=== PATIENT | male | born 1930 | race Caucasian/White ===

== ENCOUNTER 2018-07-27 10:28 | Inpatient (IN) | payer MEDICARE, BC ==
[~2018-07-27] VITALS: Ht 175.3 cm; Wt 72.6 kg
--- NOTE | 2018-07-27 10:35 | NUR ---
BIB [facility]. PATIENT IS AWAKE AND ALERT. PLACE ON A MONITOR. BP WNL. 12 LEAD EKG IN PROCESS. SON IN LAW AT BEDSIDE.
[2018-07-27] MEDS ORDERED: CEFTRIAXONE 1 G in IV DEXTROSE 5% 50 ML IV ONE (10:45)
[2018-07-27] MEDS ORDERED: GENTAMICIN SULFATE INJ 80 MG in IV DEXTROSE 5% 100 ML IV ONE (10:45)
[2018-07-27] MEDS ORDERED: IV NORMAL SALINE 1000 ML BAG IV ONE (10:45)
[2018-07-27] MEDS ORDERED: VANCOMYCIN IV 1,000 MG in IV DEXTROSE 5% 250 ML IV ONE (10:45)
[2018-07-27] MEDS ORDERED: DEXAMETHASONE SOD PHOSPHATE 4 MG INJ IV ONE (10:45)
[2018-07-27] MEDS ORDERED: METRONIDAZOLE 500 MG/NS 100ML 100 ML IV ONE ×2 (10:45→11:11)
--- NOTE | 2018-07-27 11:02 | NUR ---
O2 [address] ESQUEDA. HOB ELEVATED. 2 IV'S ARE IN PLACED.
[2018-07-27 11:11] LABS: ABG BASE EXCESS -5.8 mmol/L; ABG PCO2 23.5 mmHg (35.0-45.0); ABG PO2 59.4 mmHg (75.0-100.0); ABG SITE RIGHT RADIAL; VENT MODE room air
[2018-07-27] MEDS ORDERED: DEXAMETHASONE SOD PHOSPHATE 10 MG INJ ONE (11:11)
[2018-07-27] MEDS ORDERED: GENTAMICIN SULFATE 80 MG/2 ML VIAL ONE (11:11)
[2018-07-27 11:16] LABS: CARBON DIOXIDE 20 mmol/L (21-32); CHLORIDE 100 mmol/L (98-107); CREATININE 2.2 mg/dL (0.6-1.3); GLUCOSE 148 mg/dL (74-106); POTASSIUM 3.5 mmol/L (3.5-5.1); UREA NITROGEN, BLOOD 38 mg/dL (7-18)
[2018-07-27 11:18] LABS: BASOPHILS % (AUTO) 0.1 % (0.0-2.0); HEMATOCRIT 32.7 % (36.7-47.1); HEMOGLOBIN 11.3 g/dL (12.5-16.3); LYMPHOCYTES # (AUTO) 0.2 K/uL (20.0-40.0); MEAN CORPUSCULAR HEMOGLOBIN 32.1 uug (23.8-33.4); MEAN CORPUSCULAR HGB CONC 35 g/dL (32.5-36.3); MEAN CORPUSCULAR VOLUME 92.6 fL (73.0-96.2); MONOCYTES # (AUTO) 0.1 K/uL (2.0-10.0); MONOCYTES % (AUTO) 0.8 % (0.0-11.0); NEUTROPHILS # (AUTO) 17.3 K/uL (1.8-8.9); NEUTROPHILS % (AUTO) 98.1 % (38.5-71.5); PLATELET COUNT (AUTO) 122 K/uL (152-348); RED BLOOD CELL COUNT(AUTO) 3.53 MIL/uL (4.06-5.63); WHITE BLOOD COUNT (AUTO) 17.7 K/uL (3.6-10.2)
[2018-07-27 11:29] LABS: ALANINE AMINOTRANSFERASE 25 U/L (16-63); ALKALINE PHOSPHATASE 233 U/L (50-136); ASPARTATE AMINOTRANSFERASE 49 U/L (15-37); BILIRUBIN,DIRECT 0.4 mg/dL (0.0-0.2); BILIRUBIN,TOTAL 0.8 mg/dL (0.2-1.0); TOTAL PROTEIN, SERUM 6.7 g/dL (6.4-8.2)
--- NOTE | 2018-07-27 11:38 | NUR ---
CALLED [facility] FOR PANEL CALL - AWAITING CALLBACK. ATTEMPT 1.
[2018-07-27] MEDS ORDERED: CEFTRIAXONE 1 G VIAL ONE (11:40)
--- NOTE | 2018-07-27 11:48 | NUR ---
COBY REYNOSO NP, IN UNIT SPEAKING W/ ER MD RE PT'S ADMISSION.
--- NOTE | 2018-07-27 12:26 | NUR ---
FIRST LITER OF IV NS GIVEN. SECOND LITER HUNG. UNABLE TO ADMINSITER VANCO IN ER BECAUSE PATIENT IS BEING ADMITTED TO SECOND FLOOR. DR ESQUEDA AND EMILIANO RN AWARE. REPORT GIVEN TO EMILIANO MENCHACA, TELE NURSE. FAMILY AND PATIENT AWARE OF PENDING ADMISSION.
--- NOTE | 2018-07-27 12:45 | NUR ---
PATIENT HAS A COLOSTOMY BAG THAT NEEDS TO BE CHANGED. I ATTEMPTED TO OBTAIN A BAG AND WAFER WAS UNABLE TO BEFORE ADMISSION TO [facility]. EMILIANO MENCHACA FROM [facility] FLOOR STATED HE WILL CHANGE IT SOON HE CAN WHEN PATIENT ARRIVES TO HIS UNIT.
[2018-07-27 13:12] VITALS: BP 110/63
[2018-07-27] MEDS ORDERED: ASPIRIN 325 MG TABLET PO ONE (13:30)
[2018-07-27] MEDS ORDERED: IPRATROPIUM BROMIDE 0.5 MG/2.5 ML NEBU NEB PRN (13:30)
[2018-07-27] MEDS ORDERED: ALBUTEROL SULFATE 2.5 MG/ 0.5 ML NEBU NEB PRN (13:30)
[2018-07-27] MEDS ORDERED: ACETAMINOPHEN 325 MG TABLET PO PRN (13:45)
[2018-07-27] MEDS ORDERED: TEMAZEPAM 15 MG CAPSULE PO PRN (13:45)
[2018-07-27] MEDS ORDERED: NITROGLYCERIN 0.4 MG/TAB BOTTLE SL PRN (13:45)
[2018-07-27] MEDS ORDERED: HYDROCODONE/APAP 5-325MG TABLET PO PRN (13:45)
[2018-07-27] MEDS ORDERED: ONDANSETRON 4 MG/2 ML VIAL IV PRN (13:45)
[2018-07-27] MEDS ORDERED: MORPHINE SULFATE 2 MG/1 ML DISP.SYRIN IV PRN (13:45)
[2018-07-27] MEDS ORDERED: Z GUARD REMEDY PASTE 57 GM TUBE TOP PRN (13:45)
[2018-07-27] MEDS ORDERED: MAGNESIUM HYDROXIDE 30 ML LIQUID UDC PO PRN (13:45)
--- NOTE | 2018-07-27 13:56 | NUR ---
CLINICAL PHARMACY NOTE:VANCOMYCIN Request for vancomycin dosing on 87 y/o male 6' 160lbs for sepsis Temp 98.0 BUN 35 Scr 2.2 WC 17.7 also on Flagyl and Rocephin Due to decrease renal function will dose by levels. Give vancomycin 1gm ivpb today. Random vancomycin level ordered for tomorrow. Will continue to monitor
[2018-07-27] MEDS ORDERED: MORPHINE SULFATE 4 MG/1 ML DISP.SYRIN IV PRN (14:00)
[2018-07-27] MEDS ORDERED: VANCOMYCIN IV 1 G in PREMIXED 0 EACH IV ONE (15:00)
[2018-07-27 16:19] VITALS: BP 100/61
[2018-07-27] MEDS ORDERED: OSELTAMIVIR PHOSPHATE 75 MG CAPSULE PO SCH (17:00)
[2018-07-27] MEDS ORDERED: AZITHROMYCIN IV 500 MG in IV DEXTROSE 5% 250 ML IV SCH (18:00)
[2018-07-27] MEDS: VANCOMYCIN FOR PO/GT/NG USE PO SCH ×2 (18:34→23:45)
--- NOTE | 2018-07-27 18:59 | NUR ---
Admission note: 1300 admitted a 87 years old male from ER. Pt. brought in by staff appraiser with . Pt. in telemetry for septic shock. Pt. is under the care of ASSISTANT QUALITY MANAGER Loyd Smith who came with the following past medical hx: colon ca, multiple falls, progressive weakness, diminished appetite, PR, colostomy, and cardiac stenting. Pt. has no known allergies. Full code per pt and r/p. A/Ox4 able to make his needs known. On 2lpm via NC for comfort, no SOB or increase work of breathing noted. Denies pain or discomfort at this time. All pt. needs attended and promptly met. Skin assessment performed, noted with several skin condition, photos taken and placed in chart. RT. arm/forearm noted with several skin tear. RT. knee with abrassion. Colostomy change 2/2 leaking. Attending seen pt. in unit. Or Scrub Tech and came and seen pt. Bladder scan order by ASSISTANT QUALITY MANAGER, noted with 243 CC upon scan. Flu swab sent to lab per ASSISTANT QUALITY MANAGER order. Pt. and r/p oriented to unit. All questions and concerns addressed with no further question from pt. and r/p Inventory performed by REGIONAL CONSTRUCTION MANAGER. Kept pt. clean and comfortable in bed. Started on PO and IV abx with no ASE noted. Safety measures in place, call light and all frequently used items in reach.
[2018-07-27 19:21] VITALS: BP 101/68
[2018-07-27] MEDS: IV NS 1000 ML 1,000 ML IV PRN (19:45)
[2018-07-27] MEDS ORDERED: METRONIDAZOLE 500 MG/NS 100ML 500 MG in PREMIXED 1 EACH IV SCH (20:00)
[2018-07-27 20:07] LABS: *BILIRUBIN,URIN 1+ (NEGATIVE); *BLOOD, URINE 3+ (NEGATIVE); *CLARITY,URINE SLIGHTLY CLOUDY (CLEAR); *KETONES,URINE TRACE (NEGATIVE); *UROBILINOGEN,URINE 0.2 E.U./dl (NORMAL); LEUKOCYTE ESTERASE ,URINE NEGATIVE (NEGATIVE); NITRITE, URINE NEGATIVE (NEGATIVE); PH,URINE 5.5 (5.0-8.0); UGLUCOSE NEGATIVE (NEGATIVE)
[2018-07-27 20:18] LABS: *COLOR,URINE DARK YELLOW (YELLOW)
[2018-07-27] MEDS: CULTURELLE CAPSULE PO SCH (20:49)
[2018-07-27 20:54] LABS: URINE AMORPHOUS URATE MODERATE /HPF; WBC,URINE 0-3 /HPF (0-3)
[2018-07-27 20:55] LABS: MUCUS,URINE MODERATE /LPF (0-FEW)
[2018-07-27] MEDS ORDERED: OSELTAMIVIR NG/GT 30 MG/5 ML LIQ PO SCH (21:00)
[2018-07-27 23:58] VITALS: BP 125/81
[2018-07-28] VITALS (8 sets, daily range): BP systolic 107–139; BP diastolic 62–95
--- NOTE | 2018-07-28 03:12 | NUR ---
AROUND 0200H PATIENT CONVERTED TO ATRIAL FIB ON TELE HIGH 135; STAT EKG DONE WHICH SHOWED ATRIAL FIB RVR; VS FF 124/95 AFEBRILE AT 98DEG ORALLY; PAGED SG SPECIMEN PROCESSOR; PATIENT'S HEART RATE SUSTAINED FROM 95-110BPM; CONDITION WAS MADE AWARE TO PLASTICS SCIENTIST SG SPECIMEN PROCESSOR; NO NEW ORDERS MADE; OBSERVE FOR NOW PER SPECIMEN PROCESSOR; FOLLOW UP WITH CARDIO THIS AM;
[2018-07-28] MEDS ORDERED: AMIODARONE HCL IV 900 MG in IV DEXTROSE 5% 482 ML IV PRN (04:00)
[2018-07-28] MEDS ORDERED: AMIODARONE HCL IV 150 MG in IV DEXTROSE 5% 100 ML IV ONE (04:00)
[2018-07-28] MEDS ORDERED: AMIODARONE HCL 150 MG/3 ML VIAL IV ONE ×2 (04:12→04:19)
--- NOTE | 2018-07-28 05:10 | NUR ---
0350 PATIENT'S HR SUSTAINING 120-130'S RAPID AFIB/FLUTTER ; REFERRED TO DR POSADAS AND ORDERED AMIODARONE 150 MG BOLUS AND AMIODARONE DRIP PROTOCOL; AMIODARONE 150 MG BOLUS GIVEN; STARTED AMIODARONE DRIP AT 1 MG/HR = 33.3 ML AT 0450h TO RUN FOR 6 HOURS;; HR AT THIS TIME IS 95-105 AND STILL ATRIAL FIB.
[2018-07-28] MEDS: VANCOMYCIN FOR PO/GT/NG USE PO SCH ×4 (06:11→23:47)
[2018-07-28 06:34] LABS: BASOPHILS % (AUTO) 0.1 % (0.0-2.0); HEMATOCRIT 29.9 % (36.7-47.1); HEMOGLOBIN 10.5 g/dL (12.5-16.3); LYMPHOCYTES # (AUTO) 0.5 K/uL (20.0-40.0); LYMPHOCYTES % (AUTO) 2.2 % (20.5-51.5); MEAN CORPUSCULAR HEMOGLOBIN 32.3 uug (23.8-33.4); MEAN CORPUSCULAR HGB CONC 35 g/dL (32.5-36.3); MEAN CORPUSCULAR VOLUME 91.5 fL (73.0-96.2); MONOCYTES # (AUTO) 0.5 K/uL (2.0-10.0); MONOCYTES % (AUTO) 2.5 % (0.0-11.0); NEUTROPHILS # (AUTO) 19.9 K/uL (1.8-8.9); NEUTROPHILS % (AUTO) 95.2 % (38.5-71.5); PLATELET COUNT (AUTO) 79 K/uL (152-348); RED BLOOD CELL COUNT(AUTO) 3.27 MIL/uL (4.06-5.63); WHITE BLOOD COUNT (AUTO) 20.9 K/uL (3.6-10.2)
--- NOTE | 2018-07-28 06:54 | NUR ---
PATIENT'S HEART RHYTHM CONVERTED TO SR; WILL ENDORSE.
[2018-07-28 07:06] LABS: ALANINE AMINOTRANSFERASE 28 U/L (16-63); ALKALINE PHOSPHATASE 123 U/L (50-136); ASPARTATE AMINOTRANSFERASE 54 U/L (15-37); BILIRUBIN,TOTAL 0.4 mg/dL (0.2-1.0); CARBON DIOXIDE 24 mmol/L (21-32); CHLORIDE 102 mmol/L (98-107); CHOLESTEROL 121 mg/dL (<200); CREATININE 1.6 mg/dL (0.6-1.3); GLUCOSE 184 mg/dL (74-106); HDL CHOLESTEROL 10 mg/dL (40-60); PHOSPHOROUS 3.1 mg/dL (2.5-4.9); POTASSIUM 3.9 mmol/L (3.5-5.1); TOTAL PROTEIN, SERUM 6.3 g/dL (6.4-8.2); TRIGLYCERIDES 233 MG/DL (30-150); UREA NITROGEN, BLOOD 39 mg/dL (7-18)
[2018-07-28 07:21] LABS: BAND % (MANUAL) 15 % (0-10); LYMPHOCYTES % (MANUAL) 3 % (20-40); MONOCYTES % (MANUAL) 3 % (2-10); NEUTROPHILS % (MANUAL) 79 % (42-75)
--- NOTE | 2018-07-28 08:00 | NUR ---
RECEIVED PATIENT IN BED RESTING COMFORTABLY, NO SIGNS OF PAIN WITH ONGOING AMIODARONE DRIP. VS WITHIN THE LIMIT.
[2018-07-28] MEDS: IV NS 1000 ML 1,000 ML IV PRN (08:02)
[2018-07-28] MEDS: CULTURELLE CAPSULE PO SCH ×2 (08:16→20:57)
[2018-07-28] MEDS: PANTOPRAZOLE SODIUM 40 MG VIAL IV SCH (08:16)
[2018-07-28] MEDS: OSELTAMIVIR NG/GT 30 MG/5 ML LIQ PO SCH ×2 (08:21→20:57)
[2018-07-28] MEDS ORDERED: ASPIRIN 81 MG TAB.CHEW PO SCH (09:00)
[2018-07-28] MEDS ORDERED: CEFTRIAXONE 1 G in IV DEXTROSE 5% 50 ML IV SCH (11:00)
--- NOTE | 2018-07-28 12:00 | NUR ---
SEEN BY DR POSADAS FOR CARDIO FOLLOW-UP SAID TO CONTINUE AMIO DRIP PER PROTOCOL
[2018-07-28] MEDS: ASPIRIN 81 MG TAB.CHEW PO SCH (12:05)
[2018-07-28 13:25] LABS: *BILIRUBIN,URIN NEGATIVE (NEGATIVE); *BLOOD, URINE 2+ (NEGATIVE); *CLARITY,URINE CLEAR (CLEAR); *COLOR,URINE YELLOW (YELLOW); *KETONES,URINE NEGATIVE (NEGATIVE); *UROBILINOGEN,URINE 0.2 E.U./dl (NORMAL); LEUKOCYTE ESTERASE ,URINE NEGATIVE (NEGATIVE); NITRITE, URINE NEGATIVE (NEGATIVE); PH,URINE 5.5 (5.0-8.0); UGLUCOSE NEGATIVE (NEGATIVE)
[2018-07-28 13:29] LABS: BACTERIA,URINE MODERATE /HPF (NONE SEEN); RBC,URINE 0-3 /HPF (0-3); SQUAMOUS EPITHELIAL CELL,UR FEW /HPF (NONE SEEN)
[2018-07-28 13:30] LABS: COARSE GRANULAR CASTS,URINE 0-3 /LPF
--- NOTE | 2018-07-28 13:30 | NUR ---
SEEN BY PHYSICAL THERAPIST FOR EVAL SEE NOTES
[2018-07-28 13:31] LABS: *CREATININE,URINE 94.3 mg/dL (30-125)
[2018-07-28] MEDS: PIPERACILLIN/TAZOBACTAM/D5W 3.375 G in PREMIXED 1 EACH IV SCH ×2 (15:21→21:37)
--- NOTE | 2018-07-28 16:13 | NUR ---
RESTING COMFORTABLY NO SS OF PAIN OR DISTRESS. CONTINUE WITH AMIODARONE DRIP WITH LLUVIA MONITORING
[2018-07-28] MEDS ORDERED: AZITHROMYCIN IV 500 MG in IV DEXTROSE 5% 250 ML IV SCH (18:00)
[2018-07-28] MEDS ORDERED: MUPIROCIN 2% OINT 22 GM TUBE NS SCH (21:00)
[2018-07-29] VITALS: BP 119/82
[2018-07-29 04:08] VITALS: BP 131/79
[2018-07-29] MEDS: VANCOMYCIN FOR PO/GT/NG USE PO SCH ×2 (05:08→12:17)
[2018-07-29] MEDS: PIPERACILLIN/TAZOBACTAM/D5W 3.375 G in PREMIXED 1 EACH IV SCH ×3 (05:08→21:53)
[2018-07-29 07:16] LABS: BASOPHILS % (AUTO) 0.1 % (0.0-2.0); HEMATOCRIT 30.4 % (36.7-47.1); HEMOGLOBIN 10.7 g/dL (12.5-16.3); LYMPHOCYTES # (AUTO) 0.6 K/uL (20.0-40.0); MEAN CORPUSCULAR HEMOGLOBIN 32.3 uug (23.8-33.4); MEAN CORPUSCULAR HGB CONC 35 g/dL (32.5-36.3); MEAN CORPUSCULAR VOLUME 91.8 fL (73.0-96.2); MONOCYTES # (AUTO) 0.7 K/uL (2.0-10.0); MONOCYTES % (AUTO) 3.9 % (0.0-11.0); NEUTROPHILS # (AUTO) 17.6 K/uL (1.8-8.9); PLATELET COUNT (AUTO) 90 K/uL (152-348); RED BLOOD CELL COUNT(AUTO) 3.31 MIL/uL (4.06-5.63); WHITE BLOOD COUNT (AUTO) 18.9 K/uL (3.6-10.2)
[2018-07-29 07:18] LABS: ALANINE AMINOTRANSFERASE 28 U/L (16-63); ALKALINE PHOSPHATASE 114 U/L (50-136); ASPARTATE AMINOTRANSFERASE 42 U/L (15-37); BILIRUBIN,TOTAL 0.5 mg/dL (0.2-1.0); CARBON DIOXIDE 25 mmol/L (21-32); CHLORIDE 101 mmol/L (98-107); CREATININE 1.4 mg/dL (0.6-1.3); GLUCOSE 131 mg/dL (74-106); MAGNESIUM 1.9 mg/dL (1.8-2.4); PHOSPHOROUS 3.1 mg/dL (2.5-4.9); POTASSIUM 3.8 mmol/L (3.5-5.1); TOTAL PROTEIN, SERUM 6.4 g/dL (6.4-8.2); UREA NITROGEN, BLOOD 41 mg/dL (7-18)
[2018-07-29 07:49] VITALS: BP 139/86
[2018-07-29] MEDS: PANTOPRAZOLE SODIUM 40 MG VIAL IV SCH (08:28)
[2018-07-29] MEDS: ASPIRIN 81 MG TAB.CHEW PO SCH (08:28)
[2018-07-29] MEDS: AMIODARONE HCL 200 MG TABLET PO SCH ×2 (08:28→20:29)
[2018-07-29] MEDS: CULTURELLE CAPSULE PO SCH ×2 (08:28→20:31)
[2018-07-29] MEDS: OSELTAMIVIR NG/GT 30 MG/5 ML LIQ PO SCH ×2 (08:30→21:06)
[2018-07-29 09:11] LABS: BAND % (MANUAL) 10 % (0-10); LYMPHOCYTES % (MANUAL) 4 % (20-40); MONOCYTES % (MANUAL) 6 % (2-10); NEUTROPHILS % (MANUAL) 80 % (42-75)
[2018-07-29 10:57] VITALS: BP 113/81
[2018-07-29 15:16] VITALS: BP 123/90
[2018-07-29] MEDS: CARVEDILOL 3.125 MG TABLET PO SCH (17:55)
--- NOTE | 2018-07-29 18:45 | NUR ---
left pt. resting comfortably with reportable pain. AAOX4. Vitals signs stable, off telemetry mode. On room air, tolerated physical therapy well this morning. Iv lines patent and HL. Will continue with plan of care.
--- NOTE | 2018-07-29 19:56 | NUR ---
Patient comfortably on bed . Awake .Able to make needs known . Breathing even and unlabored . With no pain discomfort noted . On room air . Tolerated well . Keep clean and dry . Will continue to monitor .
[2018-07-29 20:07] VITALS: BP 108/72
[2018-07-30 04:36] VITALS: BP 126/79
[2018-07-30] MEDS: PIPERACILLIN/TAZOBACTAM/D5W 3.375 G in PREMIXED 1 EACH IV SCH ×2 (05:52→14:30)
[2018-07-30] MEDS: PANTOPRAZOLE SODIUM 40 MG TABLET.DR PO SCH (06:11)
[2018-07-30 06:28] LABS: BASOPHILS % (AUTO) 0.1 % (0.0-2.0); EOSINOPHILS % (AUTO) 0.1 % (0.0-7.0); HEMATOCRIT 30.5 % (36.7-47.1); HEMOGLOBIN 10.7 g/dL (12.5-16.3); LYMPHOCYTES % (AUTO) 3.6 % (20.5-51.5); MEAN CORPUSCULAR HEMOGLOBIN 32.3 uug (23.8-33.4); MEAN CORPUSCULAR HGB CONC 35 g/dL (32.5-36.3); MEAN CORPUSCULAR VOLUME 92.1 fL (73.0-96.2); MONOCYTES % (AUTO) 6.8 % (0.0-11.0); NEUTROPHILS % (AUTO) 89.4 % (38.5-71.5); PLATELET COUNT (AUTO) 96 K/uL (152-348); RED BLOOD CELL COUNT(AUTO) 3.32 MIL/uL (4.06-5.63); WHITE BLOOD COUNT (AUTO) 15.4 K/uL (3.6-10.2)
[2018-07-30 06:29] LABS: LYMPHOCYTES # (AUTO) 0.6 K/uL (20.0-40.0); MONOCYTES # (AUTO) 1.1 K/uL (2.0-10.0); NEUTROPHILS # (AUTO) 13.8 K/uL (1.8-8.9)
[2018-07-30 06:36] LABS: CARBON DIOXIDE 25 mmol/L (21-32); CHLORIDE 103 mmol/L (98-107); CREATININE 1.3 mg/dL (0.6-1.3); GLUCOSE 93 mg/dL (74-106); MAGNESIUM 1.7 mg/dL (1.8-2.4); PHOSPHOROUS 3.5 mg/dL (2.5-4.9); POTASSIUM 3.4 mmol/L (3.5-5.1); UREA NITROGEN, BLOOD 36 mg/dL (7-18)
--- NOTE | 2018-07-30 07:30 | NUR ---
on bed, sleeping comfortably. no discomfort noted.
[2018-07-30 08:22] LABS: NEUTROPHILS % (MANUAL) 83 % (42-75)
[2018-07-30 08:23] LABS: BAND % (MANUAL) 5 % (0-10); LYMPHOCYTES % (MANUAL) 3 % (20-40); MONOCYTES % (MANUAL) 9 % (2-10)
[2018-07-30] MEDS: CULTURELLE CAPSULE PO SCH ×2 (08:45→20:54)
[2018-07-30] MEDS: ASPIRIN 81 MG TAB.CHEW PO SCH (08:45)
[2018-07-30] MEDS: OSELTAMIVIR NG/GT 30 MG/5 ML LIQ PO SCH ×2 (08:45→20:58)
[2018-07-30] MEDS: CARVEDILOL 3.125 MG TABLET PO SCH ×2 (08:46→17:29)
[2018-07-30] MEDS: AMIODARONE HCL 200 MG TABLET PO SCH ×2 (08:46→20:54)
[2018-07-30] MEDS ORDERED: MAGNESIUM OXIDE 400 MG TABLET PO ONE (11:15)
[2018-07-30] MEDS ORDERED: POTASSIUM CHLORIDE 20 MEQ TAB.PRT.SR PO ONE (11:15)
[2018-07-30 12:14] VITALS: BP 121/71
--- NOTE | 2018-07-30 13:30 | NUR ---
seen by dr Jordan, gi. patient clear on gi consullt
--- NOTE | 2018-07-30 14:00 | NUR ---
and daughter at bedside, supportive and appreciative of patient care. anxious about discharge information. traffic and transport planner will discuss info. patietn feeling tired today, enc to rest in between activity, verbalized understanding. taking fluids liberally.
--- NOTE | 2018-07-30 15:39 | NUR ---
seen by kit yepez infectious disease
[2018-07-30 16:13] VITALS: BP 123/57
--- NOTE | 2018-07-30 17:35 | NUR ---
refused to have dinner for now. fluids given, tolerated well. phone off hook per family request, patient aware and agreed. tired and sleeping more on for now, encouraged, made comfortable.
--- NOTE | 2018-07-30 17:37 | NUR ---
more order from kit yepez ad discussed.
[2018-07-30] MEDS ORDERED: CEFTRIAXONE 1 G VIAL IM SCH (17:45)
--- NOTE | 2018-07-30 18:00 | NUR ---
patient down to ct abdomen via bed as ordered, patient agreed.
--- NOTE | 2018-07-30 18:25 | NUR ---
back from ct, tolerated well.
[2018-07-30] MEDS ORDERED: CEFTRIAXONE 1 G in IV DEXTROSE 5% 50 ML IV SCH (18:30)
--- NOTE | 2018-07-30 18:58 | NUR ---
sleeping comfortably, started back to rocephin ivpb as ordered.
--- NOTE | 2018-07-30 19:31 | NUR ---
no noted adverse reaction from rocephin 1st dose for now.
[2018-07-30 19:37] VITALS: BP 124/69
--- NOTE | 2018-07-30 19:53 | NUR ---
RECEIVED PATIENT IN BED AWAKE, NO SOB NO CHEST PAIN, REMAIN IN DROPLET PRECAUTIONS, CALL LIGHT WITHIN REACH.
--- NOTE | 2018-07-30 20:58 | NUR ---
PATIENT HAS SLIGHT ELEVATED TEMP OF 99. ORALLY, GIVEN COOLING MEASURE, AND TYLENOL 650MG PO, NO S/S OF DISTRESS.
--- NOTE | 2018-07-30 21:45 | NUR ---
PATIENT RECHECK TEMP 98.6 ORALLY, NO COMPLAIN OF PAIN, WILL CONT TO MONITOR.
[2018-07-31 03:55] VITALS: BP 113/54
--- NOTE | 2018-07-31 05:28 | NUR ---
PATIENT SLEPT MOST OF THE NIGHT,ALERT ORIENTED, AFEBRILE AT THIS TIME. NO SOB NO CHEST PAIN, OSTOMY DRAINING WITH GREENISH DARK COLOR FECES IN MODERATE AMOUNT, NO DIARRHEA NOTED, USES URINAL FOR BLADDER ELIMINATION. DENIES PAIN AT THIS TIME, REMAINS IN DROPLET PRECAUTION, GOOD HANDWASHING TECHNIQUE OBSERVED. WILL CONTINUE TO MONITOR.
[2018-07-31] MEDS: PANTOPRAZOLE SODIUM 40 MG TABLET.DR PO SCH (06:04)
[2018-07-31 06:54] LABS: BASOPHILS % (AUTO) 0.1 % (0.0-2.0); EOSINOPHILS % (AUTO) 0.2 % (0.0-7.0); HEMATOCRIT 31.6 % (36.7-47.1); HEMOGLOBIN 10.9 g/dL (12.5-16.3); LYMPHOCYTES # (AUTO) 0.4 K/uL (20.0-40.0); LYMPHOCYTES % (AUTO) 2.8 % (20.5-51.5); MEAN CORPUSCULAR HEMOGLOBIN 32.2 uug (23.8-33.4); MEAN CORPUSCULAR HGB CONC 35 g/dL (32.5-36.3); MEAN CORPUSCULAR VOLUME 92.8 fL (73.0-96.2); MONOCYTES # (AUTO) 0.9 K/uL (2.0-10.0); MONOCYTES % (AUTO) 6.3 % (0.0-11.0); NEUTROPHILS # (AUTO) 13.5 K/uL (1.8-8.9); NEUTROPHILS % (AUTO) 90.6 % (38.5-71.5); PLATELET COUNT (AUTO) 105 K/uL (152-348); WHITE BLOOD COUNT (AUTO) 14.9 K/uL (3.6-10.2)
[2018-07-31 07:01] LABS: CARBON DIOXIDE 25 mmol/L (21-32); CHLORIDE 104 mmol/L (98-107); CREATININE 1.2 mg/dL (0.6-1.3); GLUCOSE 95 mg/dL (74-106); POTASSIUM 3.7 mmol/L (3.5-5.1); UREA NITROGEN, BLOOD 26 mg/dL (7-18)
--- NOTE | 2018-07-31 07:30 | NUR ---
ON BED, AWAKE, VERBALIZED SLEPT WELL LAST NIGHT AND FEELS MUCH BETTER TODAY. STATED RESTED WELL LAST NIGHT. BREAKFAST SERVED, APPETITE FAIR, TAKING FLUIDS WELL
[2018-07-31] MEDS: CARVEDILOL 3.125 MG TABLET PO SCH ×2 (08:22→17:59)
[2018-07-31] MEDS: ASPIRIN 81 MG TAB.CHEW PO SCH (08:22)
[2018-07-31] MEDS: CULTURELLE CAPSULE PO SCH ×2 (08:22→20:27)
[2018-07-31] MEDS: AMIODARONE HCL 200 MG TABLET PO SCH ×2 (08:22→20:27)
[2018-07-31] MEDS: OSELTAMIVIR NG/GT 30 MG/5 ML LIQ PO SCH (08:24)
--- NOTE | 2018-07-31 08:30 | NUR ---
SEEN BY ROSHAN NASH. DISCUSSED CT ABDOMEN RESULT AND PLAN OF CARE. PATIENT GLAD AND WILL TAKE TO FAMILY
--- NOTE | 2018-07-31 09:07 | NUR ---
DONE WITH BREAKFAST, TOLERATED WELL
[2018-07-31] MEDS ORDERED: IV NORMAL SALINE 250 ML BAG IV ONE ×2 (11:15)
--- NOTE | 2018-07-31 11:25 | NUR ---
TEXTED DR. BACA FOR MRI APPROVAL
--- NOTE | 2018-07-31 11:30 | NUR ---
CHANGE COLOSTOMY BAG PER PATIENT ROUTINE, TOLERATED WELL. OBTAIN SOFT STOOL DARK GREEN IN COLOR. PATIENT AWARE MRI ABDOMEN, AGREED. ORDER FOR MRI PENDING AUTHORIZATION, WILL KEEP PATIENT NPO TILL UPDATED.
[2018-07-31 11:50] VITALS: BP 95/56
--- NOTE | 2018-07-31 13:06 | NUR ---
FOR MRI TODAY, PATIENT AWARE . NPO MAINTAINED
[2018-07-31] MEDS ORDERED: IV NORMAL SALINE 250 ML IV ONE ×2 (13:17→17:46)
--- NOTE | 2018-07-31 13:30 | NUR ---
FAMILY AT BEDSIDE, SUPPORTIVE OF PATIENT CARE. NPO MAINTAINED. BP LOW, NS IV BOLUS GIVEN REQUESTED
[2018-07-31] MEDS: PIPERACILLIN/TAZOBACTAM/D5W 3.375 G in PREMIXED 1 EACH IV SCH ×2 (14:00→21:21)
[2018-07-31] MEDS ORDERED: PIPERACILLIN/TAZOBACTAM/D5W 3.375 G in PREMIXED 1 EACH IV SCH (14:00)
--- NOTE | 2018-07-31 14:00 | NUR ---
UNABLE TO START ZOSYN, PATIENT GOING TO MRI AT 1445. TRISTEN MR TEACHER AWARE, WILL GIVEN WHEN PT ARRIVES BACK FROM MRI.
--- NOTE | 2018-07-31 14:00 | NUR ---
HELD DOSE OF ZOSYN, PATIENT WILL BE HOME THEATER EXPERIENCE EXPERT FOR MRI AT 1445. Addendum: 07/31/18 at 1804 by DENNIS SANABRIA RN PHARMACY NISHI AND TRISTEN,ANIME ARTIST AWARE, WILL ENDORSE TO GIVE AT 2200
[2018-07-31 14:30] VITALS: BP 124/67
--- NOTE | 2018-07-31 15:11 | NUR ---
TO MRI NOW. SEEN BY DR COKER PRIOR TO MRI
--- NOTE | 2018-07-31 17:30 | NUR ---
BACK FROM MRI, DENIES DISCOMFORT, DINNER SERVED.
[2018-07-31] MEDS ORDERED: GADODIAMIDE 5 MMOL/10 ML VIAL IV ONE ×2 (17:48)
--- NOTE | 2018-07-31 18:56 | NUR ---
NO DISTRESS NOTED, DIDNT FEEL TIRED TODAY. NO DISCOMFORT VERBALIZED. TOOK FLUIDS WELL. VOIDING WELL.
[2018-07-31 20:08] VITALS: BP 110/57
--- NOTE | 2018-07-31 21:27 | NUR ---
RECEIVED PT AWAKE, ALERT AND ORIENTEDX4. PT SHOWS NO SIGNS OF ACUTE DISTRESS. PT IV INTACT AND PATENT. COLOSTOMY BAG INTACT. CALL LIGHT WITHIN REACH. SAFETY AND COMFORT PROVIDED.WILL CONTINUE TO MONITOR.
[2018-08-01] MEDS: PIPERACILLIN/TAZOBACTAM/D5W 3.375 G in PREMIXED 1 EACH IV SCH ×2 (05:22→13:13)
[2018-08-01 05:45] VITALS: BP 130/69
[2018-08-01] MEDS: PANTOPRAZOLE SODIUM 40 MG TABLET.DR PO SCH (06:02)
--- NOTE | 2018-08-01 06:03 | NUR ---
PT SLEPT THROUGHOUT THE SHIFT. PT SHOWS NO SIGNS OF ACUTE DISTRESS. PT IV INTACT. PRESCRIBED MEDICATION GIVEN AND PT TOLERATED IT WELL.PT COLOSTOMY INTACT. PT SOMESTIMES FORGETFUL NEED ORIENTATION. SAFETY AND COMFORT PROVIDED. ALL NEEDS ARE MET. WILL ENDORSE ACCORDINGLY TO INCOMING NURSE FOR CONTINUITY OF CARE.
[2018-08-01 06:52] LABS: CARBON DIOXIDE 27 mmol/L (21-32); CHLORIDE 102 mmol/L (98-107); CREATININE 1.3 mg/dL (0.6-1.3); GLUCOSE 109 mg/dL (74-106); POTASSIUM 3.4 mmol/L (3.5-5.1); UREA NITROGEN, BLOOD 21 mg/dL (7-18)
--- NOTE | 2018-08-01 07:20 | NUR ---
PATIENT IS AWAKE ALERT AND ORIENTED DENIES PAIN OR DISCOMFORTS AT THIS TIME ENCOURAGED USE OF INCENTIVE SPIROMETER AT THE BEDSIDE AND EXPRESSED UNDERSTANDING.CALL LIGHTS AND PERSONAL BELONGINGS PLACED WITHIN EASY REACH NOT IN DISTRESS AT THIS TIME.
--- NOTE | 2018-08-01 07:47 | NUR ---
NEW ORDER FOR DR MCCALLUM TO SEE PATIENT IN CONSULTATION RECEIVED FROM JACK STALLION KEEPER AND NOTED.
[2018-08-01 08:00] LABS: BASOPHILS % (AUTO) 0.1 % (0.0-2.0); EOSINOPHILS # (AUTO) 0.1 K/uL (0.0-0.7); EOSINOPHILS % (AUTO) 0.5 % (0.0-7.0); LYMPHOCYTES # (AUTO) 0.6 K/uL (20.0-40.0); MONOCYTES # (AUTO) 0.9 K/uL (2.0-10.0)
[2018-08-01 08:33] LABS: HEMATOCRIT 30.3 % (36.7-47.1); HEMOGLOBIN 10.5 g/dL (12.5-16.3); LYMPHOCYTES % (AUTO) 4.2 % (20.5-51.5); MEAN CORPUSCULAR HEMOGLOBIN 32.8 uug (23.8-33.4); MEAN CORPUSCULAR HGB CONC 35 g/dL (32.5-36.3); MEAN CORPUSCULAR VOLUME 94.8 fL (73.0-96.2); MONOCYTES % (AUTO) 6.7 % (0.0-11.0); NEUTROPHILS # (AUTO) 12.3 K/uL (1.8-8.9); NEUTROPHILS % (AUTO) 88.5 % (38.5-71.5); PLATELET COUNT (AUTO) 127 K/uL (152-348); WHITE BLOOD COUNT (AUTO) 13.9 K/uL (3.6-10.2)
[2018-08-01] MEDS: CULTURELLE CAPSULE PO SCH (08:44)
[2018-08-01] MEDS: CARVEDILOL 3.125 MG TABLET PO SCH (08:45)
[2018-08-01] MEDS: AMIODARONE HCL 200 MG TABLET PO SCH (08:45)
[2018-08-01] MEDS: ASPIRIN 81 MG TAB.CHEW PO SCH (08:45)
[2018-08-01 11:08] VITALS: BP 121/71
[2018-08-01] MEDS ORDERED: POTASSIUM CHLORIDE 20 MEQ TAB.PRT.SR PO ONE (12:30)
--- NOTE | 2018-08-01 13:00 | NUR ---
PER [facility] BIOPSY AND DRAINAGE WILL BE PERFORMED TOMORROW AT 0900 BUT THE PATIENTS DAUGHTER STATED THAT JACK HAD TOLD THEM THAT PATIENT WILL NEED TO BE OFF ASPIRIN FOR A FEW DAYS BEFORE THE BIOPSY AND DRAINAGE CAN BE DONE SO I CALLED ERIKA AND LEFT HIM A MESSAGE TO CONFIRM IF PROCEDURE CAN BE DONE TOMORROW OR NOT.
[2018-08-01] MEDS ORDERED: MENT71OI TOP (13:10)
[2018-08-01] MEDS ORDERED: Nitroglycerin Sl SL (13:10)
[2018-08-01] MEDS ORDERED: ONDA4VIA23 IV (13:10)
[2018-08-01] MEDS ORDERED: CARV3.122 PO (13:10)
[2018-08-01] MEDS ORDERED: ALBU2.5V13 NEB (13:10)
[2018-08-01] MEDS ORDERED: Morphine Sulfate Inj IV (13:10)
[2018-08-01] MEDS ORDERED: ACET325T53 PO (13:10)
[2018-08-01] MEDS ORDERED: LACT1CAP57 PO (13:10)
[2018-08-01] MEDS ORDERED: HYDR-3326 PO (13:10)
[2018-08-01] MEDS ORDERED: PANT40TA2 PO (13:10)
[2018-08-01] MEDS ORDERED: MAGN400O6 PO (13:10)
[2018-08-01] MEDS ORDERED: TEMA15CA5 PO (13:10)
[2018-08-01] MEDS ORDERED: AMIO200T6 PO (13:10)
[2018-08-01] MEDS ORDERED: IPRA0.2S6 NEB (13:10)
[2018-08-01] MEDS ORDERED: PIPE3.379 IV (13:11)
--- NOTE | 2018-08-01 13:45 | NUR ---
CALLED THE [facility] AND REPORT GIVEN TO MARAH MENCHACA FOR CONTINUING CARE INCLUDING THAT PATIENT NEEDS TO BE NPO FOR THE LIVER BIOPSY AND NEEDS CONSENT AND LAB TESTS FOR PT/PTT AND LFT AND ALSO HIS EXTENDED ZOSYN ATB IS CURRENTLY INFUSING AND SHE EXPRESSED UNDERSTANDING.
--- NOTE | 2018-08-01 14:00 | NUR ---
PER JACK KRISHNAMURTHY FOR THE BIOPSY TOMORROW PATIENTS FAMILY HERE AND AWARE.
--- NOTE | 2018-08-01 14:17 | NUR ---
PATIENT DISCHARGED BY W/CHAIR TO ROOM 109 FAMILY AWARE IN SATISFACTORY CONDITION WITH ALL OF HIS PERSONAL BELONGINGS.
[2018-08-01 15:52] LABS: BILIRUBIN,DIRECT 0.2 mg/dL (0.0-0.2); BILIRUBIN,TOTAL 0.7 mg/dL (0.2-1.0); TOTAL PROTEIN, SERUM 6.6 g/dL (6.4-8.2)
[2018-10-01] MEDS ORDERED: LEVO50TA8 PO (10:23)
[2018-10-02] MEDS ORDERED: ASPI81TA31 PO (16:53)
== END 2018-08-01 14:15 | DRG 871 ==
LOC: ER 10:28 → TELE 12:57 → TELE-TD 07-28 03:56 → TELE 07-29 12:44 → MED 07-29 16:14
PROVIDERS: ADMIT Nurse Practitioner Acute Care; ATTEND Nurse Practitioner Acute Care
DX: A41.51 Sepsis due to Escherichia coli [E. coli] (principal); K75.0 Abscess of liver; R65.21 Severe sepsis with septic shock; E43 Unspecified severe protein-calorie malnutrition; I21.A1 Myocardial infarction type 2; I50.43 Acute on chronic combined systolic (congestive) and diastolic (congestive) heart failure; N17.0 Acute kidney failure with tubular necrosis; J18.9 Pneumonia, unspecified organism; K82.A2 Perforation of gallbladder in cholecystitis; I13.0 Hypertensive heart and chronic kidney disease with heart failure and stage 1 through stage 4 chronic kidney disease, or unspecified chronic kidney disease; K80.00 Calculus of gallbladder with acute cholecystitis without obstruction; N39.0 Urinary tract infection, site not specified; I48.92 Unspecified atrial flutter; D68.9 Coagulation defect, unspecified; Z68.23 Body mass index [BMI] 23.0-23.9, adult; N18.9 Chronic kidney disease, unspecified; Z85.038 Personal history of other malignant neoplasm of large intestine; Z93.3 Colostomy status; Z90.49 Acquired absence of other specified parts of digestive tract; I25.2 Old myocardial infarction; I25.10 Atherosclerotic heart disease of native coronary artery without angina pectoris; Z95.5 Presence of coronary angioplasty implant and graft; D69.6 Thrombocytopenia, unspecified; I48.91 Unspecified atrial fibrillation; I25.5 Ischemic cardiomyopathy; D63.8 Anemia in other chronic diseases classified elsewhere; Z87.891 Personal history of nicotine dependence; Z85.048 Personal history of other malignant neoplasm of rectum, rectosigmoid junction, and anus; K43.5 Parastomal hernia without obstruction or gangrene; Z79.82 Long term (current) use of aspirin; Z82.49 Family history of ischemic heart disease and other diseases of the circulatory system; Z80.0 Family history of malignant neoplasm of digestive organs; R32 Unspecified urinary incontinence; Z92.3 Personal history of irradiation; Z87.01 Personal history of pneumonia (recurrent); Z92.21 Personal history of antineoplastic chemotherapy
CPT/HCPCS: 36415; 36600; 70030-TC; 71045; 83605; 83735; 84100; 84156; 84300; 85025; 85610; 85730; 87040; 87077; 87086; 87400; 93005; 93307; 97116; 97530; A4663; A9579; C9113; G0378; J0282; J0456; J0696; J1100; J1580; J2543; J3370; J3490; J7030; J7040; J7050; J7060

== ENCOUNTER 2018-08-01 14:53 | Inpatient (IN) | payer MEDICARE, BC ==
[~2018-08-01] VITALS: Ht 172.7 cm; Wt 72.6 kg
[~2018-08-01 14:53] MED LIST: ACET325T53 PO; ALBU2.5V13 NEB; AMIO200T6 PO; CARV3.122 PO; HYDR-3326 PO; IPRA0.2S6 NEB; LACT1CAP57 PO; MAGN400O6 PO; MENT71OI TOP; Morphine Sulfate Inj IV; Nitroglycerin Sl SL; ONDA4VIA23 IV; PANT40TA2 PO; PIPE3.379 IV; TEMA15CA5 PO
[2018-08-01] MEDS ORDERED: MAGNESIUM HYDROXIDE 30 ML LIQUID UDC PO PRN ×2 (15:15→19:30)
[2018-08-01] MEDS ORDERED: Z GUARD REMEDY PASTE 57 GM TUBE TOP PRN ×2 (15:15→20:30)
[2018-08-01] MEDS ORDERED: ONDANSETRON 4 MG/2 ML VIAL IV PRN ×2 (15:15→19:30)
[2018-08-01] MEDS ORDERED: ACETAMINOPHEN 325 MG TABLET PO PRN ×2 (15:15→19:30)
[2018-08-01 16:31] VITALS: BP 126/70
--- NOTE | 2018-08-01 16:34 | NUR ---
Patient admitted from [facility] around 2pm via wheelchair, Alert and orientedx3-4. with DX of sepsis. not in distress. MD Ayon and MANAGER ALLIANCE Cristobal aware. ordered continue medication. Continue on zosyn on 12.5ml infusing for 4 hours for sepsis. On left forearm and left hand G20 peripheral IV site. no infiltration noted. As per nurse Gosi, Patient is continent/incontinent in bladder, using urinals and diaper. Patient skin with right knee scab, sacrum redness, skin tear right forearm. According to patient, he fell at home and skin tear happened.ordered for wound consult. Photo taken. For guided liver biopsy at 9am reilly 08/03/18 for for abscess. NPO post midnight. D/C ASA until procedure done. LFT PT and PTT lab done. awaiting result. On colostomy bag at left abdomen. intact. no complaint voiced. will continue monitor
--- NOTE | 2018-08-01 19:10 | NUR ---
Awake during initial rounds, watching TV. Denies any pain/discomforts at this time. HOB elevated. Peripheral IV noted on left FA and RH, both intact and patent with G# 20. Colostomy bag intact and patent with small amount of formed brown stool. Safety measure and fall precaution maintained. Continue care as planned.
[2018-08-01] MEDS ORDERED: IPRATROPIUM BROMIDE 0.5 MG/2.5 ML NEBU NEB PRN (19:30)
[2018-08-01] MEDS ORDERED: TEMAZEPAM 15 MG CAPSULE PO PRN (19:30)
[2018-08-01] MEDS ORDERED: HYDROCODONE/APAP 5-325MG TABLET PO PRN (19:30)
[2018-08-01] MEDS ORDERED: ALBUTEROL SULFATE 2.5 MG/ 0.5 ML NEBU NEB PRN (19:30)
[2018-08-01 20:09] VITALS: BP 117/67
[2018-08-01] MEDS: DOCUSATE SODIUM 100 MG CAPSULE PO SCH (20:43)
[2018-08-01] MEDS: AMIODARONE HCL 200 MG TABLET PO SCH (20:44)
[2018-08-01] MEDS: PIPERACILLIN/TAZOBACTAM/D5W 3.375 G in PREMIXED 1 EACH IV SCH (21:36)
[2018-08-01] MEDS: CULTURELLE CAPSULE PO SCH (21:36)
[2018-08-01] MEDS ORDERED: PIPERACILLIN/TAZO/D5W 3.375 GM FROZEN IV SCH (22:00)
[2018-08-01] MEDS ORDERED: PIPERACILLIN/TAZOBACTAM/D5W 3.375 G in PREMIXED 1 EACH IV SCH (22:00)
[2018-08-02] MEDS: PIPERACILLIN/TAZOBACTAM/D5W 3.375 G in PREMIXED 1 EACH IV SCH ×3 (05:47→21:54)
[2018-08-02 06:13] VITALS: BP 134/75
[2018-08-02] MEDS: PANTOPRAZOLE SODIUM 40 MG TABLET.DR PO SCH (06:23)
--- NOTE | 2018-08-02 06:53 | NUR ---
Shift End Report: VSS. No complaint presented all night. Slept well. Continue on IV ATB as ordered without s/s of adverse reaction noted. Kept NPO as ordered for CT guided liver biopsy. Colostomy intact and patent. No fall/injury. Ambulating to the bathroom with walker and minimal assist. All needs attended and met. No significant event reported all night. Continue current rehab plan of care.
[2018-08-02 07:35] VITALS: BP 139/80
--- NOTE | 2018-08-02 08:18 | NUR ---
Patient noted sitting up in bed, no complaints of pain at this time, no signs of distress noted, call light in reach, bed locked and in lowest positon, remains NPO for morning procedure, all morning medication given with small amount of water, all needs met at this time
[2018-08-02] MEDS: AMIODARONE HCL 200 MG TABLET PO SCH ×2 (08:30→21:52)
[2018-08-02] MEDS: CARVEDILOL 3.125 MG TABLET PO SCH ×2 (08:30→17:33)
[2018-08-02] MEDS: CULTURELLE CAPSULE PO SCH ×2 (08:30→21:53)
[2018-08-02] MEDS ORDERED: FENTANYL CITRATE 100 MCG/2 ML AMPUL IV PRN (09:30)
[2018-08-02] MEDS ORDERED: MIDAZOLAM HCL 2 MG/2 ML VIAL IV PRN (09:30)
[2018-08-02] MEDS ORDERED: NALOXONE HCL 0.4 MG/ML AMPUL IV PRN (09:45)
--- NOTE | 2018-08-02 09:45 | NUR ---
Left for liver biopsy and drainage procedure at this time, consent signed
--- NOTE | 2018-08-02 15:02 | NUR ---
WOUND CARE CONSULT: PRESENTS WITH DRAIN TO LEFT SIDE WITH DRAINAGE BAG AND BROWN DRAINAGE. DEFER TO SURGICAL TEAM FOR DRAIN. PT NOTED TO HAVE COLOSTOMY. LEFT ARM SKIN TEAR NOTED, PRESENT ON ADMISSION. ALL SKIN PROTECTION AND WOUND CARE RECOMMENDATIONS DISCUSSED WITH NURSING STAFF. WILL SEE PRN. LUCAS IN AGREEMENT WITH PLAN OF CARE. Addendum: 08/02/18 at 1506 by JOSÉ MIGUEL DOBBINS RN Amended: Links added.
--- NOTE | 2018-08-02 15:33 | NUR ---
Patient returned to unit at 1145 from liver abscess drainage procedure Vitals: 140/71, 62 pulse, 97.3 oral temperature, 18 respirations, 100% on room air Right flank dressing noted patent and intact, catheter connected to closed drainage system, brown drainage noted in at this time, MD Mcdermott made aware of findings
[2018-08-02 16:37] VITALS: BP 133/73
[2018-08-02 20:22] VITALS: BP 111/64
[2018-08-02] MEDS: DOCUSATE SODIUM 100 MG CAPSULE PO SCH (21:52)
--- NOTE | 2018-08-03 05:02 | NUR ---
aaox4 resting in bed at beginning of the shift. needs attended. patient on antibiotic therapy, no ill effects noted. denies any pain at this time. tolerated po meds well. patient had a liver biopsy done (08/02) by Dr Eason. Had a right lower back catheter placed to drainage bag, with blackish drainage noted. Dressing intact. Also patient has a colostomy with soft brownish stool noted. RLQ catheter intact which is a closed system, minimal amount of drainage noted. VSS. kept comfortable. fall precautions maintained. voiding in the urinal. no acute distress noted.
[2018-08-03 05:34] VITALS: BP 143/87
[2018-08-03] MEDS: PIPERACILLIN/TAZOBACTAM/D5W 3.375 G in PREMIXED 1 EACH IV SCH ×3 (05:49→21:35)
[2018-08-03] MEDS: PANTOPRAZOLE SODIUM 40 MG TABLET.DR PO SCH (06:46)
[2018-08-03 08:00] VITALS: BP 149/81
[2018-08-03] MEDS: AMIODARONE HCL 200 MG TABLET PO SCH ×2 (08:39→21:33)
[2018-08-03] MEDS: CULTURELLE CAPSULE PO SCH ×2 (08:40→21:34)
[2018-08-03] MEDS: CARVEDILOL 3.125 MG TABLET PO SCH ×2 (08:40→17:06)
--- NOTE | 2018-08-03 09:16 | NUR ---
Received nursing report from shift commander nurse. Pt. in bed comfortable. Pt A/OX4, responds to verbal and tactile stimuli. No SOB or acute distress noted. Administered all due medications as ordered and tolerated well. Fall precautions in place. Assisted pt. with morning ADL's. No new skin condition noted. Colostomy bag intact with stool output. Noted with rob-closed drainage system on RLQ with brown/black liquid output. Bed in locked and lowest position with side rails up x2, alarm on. Call light within reach. Will continue to monitor.
--- NOTE | 2018-08-03 09:54 | NUR ---
Received order from Laurel for kayla drain fluid culture. Pt. made aware. Order noted and carried out accordingly.
[2018-08-03 16:00] VITALS: BP 95/52
--- NOTE | 2018-08-03 18:57 | NUR ---
End of shift: No significant change during this shift. All due medications administered as ordered and tolerated well. Encouraged PO fluid intake as tolerated. Lt. hand and LFA PIV d/c 2/2 leaking and infiltration. Started new 22G PIV on RW x 1 attempt with good blood return, flushed with 5CC 0.9 NS with no resistance met, secured with tegaderm. Pt. tolerated procedure well. Received IV abx as ordered with no ASE. Emile-closed drainage system with brown/black fluid output. Colostomy bag changed per pt. request today. No new skin condition noted. 2X upper side rails up as enabler for bed positioning and mobility. Call light and all frequently used items within pt. reach. Will endorse to oncoming shift accordingly.
[2018-08-03 20:28] VITALS: BP 121/55
[2018-08-03] MEDS: DOCUSATE SODIUM 100 MG CAPSULE PO SCH (21:33)
--- NOTE | 2018-08-04 04:24 | NUR ---
resting in bed @ beginning of shift. in good spirits. aaox4 needs attended. patient on antibiotic tolerated well. no side effects noted. afebrile. VSS. right lateral rob-closed drainage intact, blackish drainage noted .Will monitor patient. VSS. Afebrile. colostomy intact, moderate amount of brownish stool noted Slept well throughout the night.
[2018-08-04 05:34] VITALS: BP 124/67
[2018-08-04] MEDS: PIPERACILLIN/TAZOBACTAM/D5W 3.375 G in PREMIXED 1 EACH IV SCH ×3 (06:17→21:35)
[2018-08-04] MEDS: PANTOPRAZOLE SODIUM 40 MG TABLET.DR PO SCH (06:20)
[2018-08-04 07:00] VITALS: BP 144/71
[2018-08-04] MEDS: CARVEDILOL 3.125 MG TABLET PO SCH ×2 (08:27→17:19)
[2018-08-04] MEDS: CULTURELLE CAPSULE PO SCH ×2 (08:27→21:33)
[2018-08-04] MEDS: AMIODARONE HCL 200 MG TABLET PO SCH ×2 (08:28→21:33)
[2018-08-04 15:53] VITALS: BP 129/51
--- NOTE | 2018-08-04 16:08 | NUR ---
INTERDISCIPLINARY TEAM CONFERENCE
--- NOTE | 2018-08-04 18:30 | NUR ---
C/O ITCHING TO BACK NOTED RASH RED BUMPS CALLED RICKY SWARTZ HE GAVE ORDER FOR HYDROCORTISONE 1% CREAM. TO BE APPLIED BID
[2018-08-04 20:44] VITALS: BP 123/66
[2018-08-04] MEDS: DOCUSATE SODIUM 100 MG CAPSULE PO SCH (21:33)
[2018-08-04] MEDS: HYDROCORTISONE 1% CREAM 30 GM TUBE TP SCH (21:34)
--- NOTE | 2018-08-05 04:41 | NUR ---
condition unchanged. patient still with the rob-closed drainage system attached to the right lateral back. Patient connected to a drainage bag no drainage noted. Fall precautions maintained. OOB to the BR with supervision. Able to manage emptying colostomy, moderate amount of brownish stool noted. VSS. BP 123/66 HR 88 Resp 19 99% on RA. temp 97.5 needs attended. denies any pain at this time. Will monitor patient. Tolerated IV ABT well given at scheduled times. voiding well in the urinal. No leakage noted on the colostomy area. kept comfortable.
[2018-08-05 05:48] VITALS: BP 139/71
[2018-08-05] MEDS: PIPERACILLIN/TAZOBACTAM/D5W 3.375 G in PREMIXED 1 EACH IV SCH ×3 (06:02→21:48)
[2018-08-05] MEDS: PANTOPRAZOLE SODIUM 40 MG TABLET.DR PO SCH (06:20)
--- NOTE | 2018-08-05 06:25 | NUR ---
rob-closed drainage catheter drain 50ml bile colored drainage noted. will monitor output. tolerated IV antibiotic well. No ill effects noted. I & O monitor. denies any pain nor any discomfort. voiding freely.
[2018-08-05 07:47] LABS: ALANINE AMINOTRANSFERASE 18 U/L (16-63); ALKALINE PHOSPHATASE 88 U/L (50-136); ASPARTATE AMINOTRANSFERASE 21 U/L (15-37); BILIRUBIN,TOTAL 0.5 mg/dL (0.2-1.0); CARBON DIOXIDE 25 mmol/L (21-32); CHLORIDE 104 mmol/L (98-107); CREATININE 1.1 mg/dL (0.6-1.3); GLUCOSE 95 mg/dL (74-106); MAGNESIUM 1.9 mg/dL (1.8-2.4); PHOSPHOROUS 3.2 mg/dL (2.5-4.9); POTASSIUM 3.8 mmol/L (3.5-5.1); TOTAL PROTEIN, SERUM 6.4 g/dL (6.4-8.2); UREA NITROGEN, BLOOD 23 mg/dL (7-18)
[2018-08-05 08:00] VITALS: BP 133/68
[2018-08-05] MEDS: HYDROCORTISONE 1% CREAM 30 GM TUBE TP SCH ×3 (09:17→17:56)
[2018-08-05] MEDS: CULTURELLE CAPSULE PO SCH ×2 (09:17→21:45)
[2018-08-05] MEDS: CARVEDILOL 3.125 MG TABLET PO SCH ×2 (09:18→17:56)
[2018-08-05] MEDS: AMIODARONE HCL 200 MG TABLET PO SCH ×2 (09:23→21:46)
[2018-08-05 11:14] LABS: BASOPHILS % (AUTO) 0.6 % (0.0-2.0); EOSINOPHILS # (AUTO) 0.1 K/uL (0.0-0.7); EOSINOPHILS % (AUTO) 1.6 % (0.0-7.0); HEMATOCRIT 34.1 % (36.7-47.1); HEMOGLOBIN 11.6 g/dL (12.5-16.3); LYMPHOCYTES # (AUTO) 0.7 K/uL (20.0-40.0); LYMPHOCYTES % (AUTO) 10.8 % (20.5-51.5); MEAN CORPUSCULAR HEMOGLOBIN 32.2 uug (23.8-33.4); MEAN CORPUSCULAR HGB CONC 34 g/dL (32.5-36.3); MEAN CORPUSCULAR VOLUME 94.8 fL (73.0-96.2); MONOCYTES # (AUTO) 0.5 K/uL (2.0-10.0); MONOCYTES % (AUTO) 8.2 % (0.0-11.0); NEUTROPHILS % (AUTO) 78.8 % (38.5-71.5)
[2018-08-05 11:34] LABS: PLATELET COUNT (AUTO) 259 K/uL (152-348); WHITE BLOOD COUNT (AUTO) 6.3 K/uL (3.6-10.2)
[2018-08-05 11:55] LABS: BAND % (MANUAL) 6 % (0-10); LYMPHOCYTES % (MANUAL) 13 % (20-40); METAMYELOCYTES % 1 % (0-1); MONOCYTES % (MANUAL) 8 % (2-10); MYELOCYTES % 1 % (0-0); NEUTROPHILS % (MANUAL) 71 % (42-75)
--- NOTE | 2018-08-05 13:31 | NUR ---
INTERDISCIPLINARY TEAM CONFERENCE
[2018-08-05] MEDS ORDERED: diphenhydrAMINE 25 MG CAP PO PRN (14:30)
[2018-08-05 16:21] VITALS: BP 114/57
--- NOTE | 2018-08-05 18:50 | NUR ---
SBAR report received this morning, board updated. Pt assessed, no pain, acute distress, or SOB noted. Pt compliant with all routine medication administration. VSS. Pt cooperative with all therapies as offered. Colostomy bad accidentally broke open during transfer from bed to wheelchair. Colostomy bag replaced, emptied, and care provided. Wound and skin care provided as ordered. Pt sat up in wheelchair for all meals. Cholecystostomy drainage measured, marked on bag, and reported to POULTRY DRESSER. IV intact, flushed, and patent. All comfort and safety needs met promptly throughout this shift. Family came to visit throughout the day, personal food brought and stored. Call light and personal belongings placed within reach. Will continue to monitor and endorse to oncoming heating plant superintendent.
[2018-08-05 20:00] VITALS: BP 169/58
[2018-08-05] MEDS ORDERED: AMLODIPINE 5 MG TABLET PO ONE (21:28)
[2018-08-05] MEDS: DOCUSATE SODIUM 100 MG CAPSULE PO SCH (21:46)
--- NOTE | 2018-08-05 23:11 | NUR ---
Received pt resting in bed and watching TV. AAO x4. No acute distress noted. No c/o pain or discomfort. Colostomy bag noted to be intact, stool output also noted. Drainage bag on RUQ noted to be draining bile colored output. IV on right hand patent and intact and currently receiving IV antibiotic. Pt's BP elevated 169/ 58, HR 56, asymptomatic. Sharron DNP notified. Also asked Sharron for Amiodarone parameter. New order for Norvasc 5mg PO now and then daily. For amiodarone parameter, hold if HR is 50 or less. Carried out order. Safety measures maintained. Call light and personal belongings within reach. Will continue to monitor.
[2018-08-05 23:55] VITALS: BP 132/67
[2018-08-06 04:37] VITALS: BP 144/69
[2018-08-06] MEDS: PIPERACILLIN/TAZOBACTAM/D5W 3.375 G in PREMIXED 1 EACH IV SCH ×3 (05:46→21:35)
[2018-08-06] MEDS: PANTOPRAZOLE SODIUM 40 MG TABLET.DR PO SCH (06:37)
--- NOTE | 2018-08-06 07:07 | NUR ---
Emile-closed drainage catheter output t/o the shift is 125mL with bile colored drainage noted. Continue to monitor.
[2018-08-06 07:30] VITALS: BP 138/68
[2018-08-06] MEDS: AMLODIPINE 5 MG TABLET PO SCH (08:36)
[2018-08-06] MEDS: AMIODARONE HCL 200 MG TABLET PO SCH ×2 (08:36→20:18)
[2018-08-06] MEDS: HYDROCORTISONE 1% CREAM 30 GM TUBE TP SCH ×3 (08:37→17:03)
[2018-08-06] MEDS: CULTURELLE CAPSULE PO SCH ×2 (08:37→20:18)
[2018-08-06] MEDS: CARVEDILOL 3.125 MG TABLET PO SCH ×2 (08:37→17:03)
--- NOTE | 2018-08-06 10:00 | NUR ---
Received nursing report from shift leader nurse. Pt. in bed comfortable. Pt A/OX4, responds to verbal and tactile stimuli. No SOB or acute distress noted. NPO for preparation of U/S of abdomen. Administered all due medications as ordered and tolerated well. Fall precautions in place. Assisted pt. with morning ADL's. No new skin condition noted. Colostomy bag intact with stool output. Noted with rob-closed drainage system on RLQ with brown fluid output. Bed in locked and lowest position with side rails up x2, alarm on. Call light within reach. Will continue to monitor.
--- NOTE | 2018-08-06 10:18 | NUR ---
Unable to modify the order for Ultrasound Liver. The system does not allow the tech to change the service date. The exam was ordered on the 08/05/2018 but the tech was unable to perform the exam since the patient is not NPO. If the exam is necessary, please provide the new order.
[2018-08-06 16:00] VITALS: BP 99/46
--- NOTE | 2018-08-06 18:35 | NUR ---
End of shift: No significant change during this shift. All due medications administered as ordered and tolerated well. Encouraged PO fluid intake as tolerated. Lt. hand PIV patent and intact. Pt. tolerated procedure well. Received IV abx as ordered with no ASE. Emile-closed drainage system with brown/green fluid output, total output for this shift 50ML. Colostomy bag changed per pt. request today. No new skin condition noted. Skin tear on LFA healing well, dressing changed as ordered. 2X upper side rails up as enabler for bed positioning and mobility. Call light and all frequently used items within pt. reach. Will endorse to oncoming shift accordingly.
[2018-08-06 19:20] VITALS: BP 107/56
--- NOTE | 2018-08-06 19:30 | NUR ---
SBAR received from day shift nurse. Pt alert and oriented x 4. No complaint of SOB or pain at this time. No SOB or acute distress noted. Fall precautions in place. Colostomy bag intact with stool output. Noted with rob-closed drainage system on RLQ with brown fluid output. Call light and frequently used items within reach. Will continue to monitor.
[2018-08-06] MEDS: DOCUSATE SODIUM 100 MG CAPSULE PO SCH (20:18)
[2018-08-07 04:39] VITALS: BP 137/77
[2018-08-07] MEDS: PIPERACILLIN/TAZOBACTAM/D5W 3.375 G in PREMIXED 1 EACH IV SCH ×3 (05:15→21:35)
[2018-08-07] MEDS: PANTOPRAZOLE SODIUM 40 MG TABLET.DR PO SCH (06:11)
--- NOTE | 2018-08-07 06:47 | NUR ---
No significant changes over night. No complaint of SOB or pain. IV in place in Right forearm. All due medications given-tolerated well. Patient ready for morning CT scan. Colostomy bag intact. Emile closed drainage with brown fluid output. No output this shift. Safety precautions maintained throughout the shift. Side rails up bilaterally. Call light and most used items within reach. Will endorse to oncoming shift accordingly.
[2018-08-07] MEDS ORDERED: IOHEXOL 300MG/ML 100 ML INFUS..BTL ONE (07:45)
[2018-08-07] MEDS ORDERED: NORMAL SALINE FLUSH 10 ML DISP.SYRIN ONE (07:45)
[2018-08-07] MEDS ORDERED: SWABABLE VALVE TRANSFER SET EA MC ONE (07:45)
[2018-08-07] MEDS ORDERED: IV NORMAL SALINE 250 ML IV ONE (07:45)
[2018-08-07 08:30] VITALS: BP 164/59
[2018-08-07] MEDS: CULTURELLE CAPSULE PO SCH ×2 (08:31→20:10)
[2018-08-07] MEDS: HYDROCORTISONE 1% CREAM 30 GM TUBE TP SCH ×3 (08:32→17:30)
[2018-08-07] MEDS: AMIODARONE HCL 200 MG TABLET PO SCH ×2 (08:33→20:10)
[2018-08-07] MEDS: AMLODIPINE 5 MG TABLET PO SCH (08:34)
[2018-08-07] MEDS: CARVEDILOL 3.125 MG TABLET PO SCH ×2 (08:34→17:29)
--- NOTE | 2018-08-07 08:52 | NUR ---
Patient noted resting in bed, no complaints of pain, no signs of distress noted, call light noted in reach, bed locked and in lowest position, consent signed for CT abdomen and pelvis with IV contrast, NPO status maintained, patient left unit at 0800 for procedure, returned from procedure at 0825.
[2018-08-07 16:52] VITALS: BP 115/61
--- NOTE | 2018-08-07 19:00 | NUR ---
Family member called requesting more information from surgeon or SMALL PRODUCTS I ASSEMBLER regarding abscess drainage and catheter placement for 08/08/18 prior to consent being signed, MD Eason called without answer, message left, night nurse endorsed to follow up, patient is to be NPO as of midnight.
--- NOTE | 2018-08-07 19:17 | NUR ---
SBAR received from day shift nurse. Pt alert and oriented x 4. No complaint of SOB or pain at this time. Fall precautions in place. Colostomy bag intact with stool output. Emile-closed drainage system on RLQ with brown fluid output. No drainage on dayshift per nurse. CT scan reviewed, and NPO status for Biopsy tomorrow informed to patient. Verbalized understanding. Call light and frequently used items within reach. Will continue to monitor.
--- NOTE | 2018-08-07 19:45 | NUR ---
Family member called regarding abscess drainage and catheter placement for 08/08/18. Stated that either patient nor will sign any consent that is necessary for procedure. Information given regarding procedure given, but family member still requires more background on what has been done prior for patients liber and abscess. This nurse spoke with the patient, and he concurs with what has been stated by family member. He will not sign a consent form until he can have Dr. Eason explain why the procedure is necessary. Jenaro called sign with no answer. Will try again in the morning.
[2018-08-07] MEDS: DOCUSATE SODIUM 100 MG CAPSULE PO SCH (20:10)
[2018-08-07 21:16] VITALS: BP 141/54
[2018-08-08 04:57] VITALS: BP 137/70
[2018-08-08] MEDS: PIPERACILLIN/TAZOBACTAM/D5W 3.375 G in PREMIXED 1 EACH IV SCH ×3 (05:29→21:02)
[2018-08-08] MEDS: PANTOPRAZOLE SODIUM 40 MG TABLET.DR PO SCH (06:07)
--- NOTE | 2018-08-08 06:15 | NUR ---
Spoke with Dr. Eason this morning about procedure status. MD will speak to patient and family today regarding concerns. NPO status maintained incase of procedure. Will endorse to oncoming shift accordingly.
--- NOTE | 2018-08-08 06:59 | NUR ---
IV in place in Right forearm. Infusing 0600 Zosyn. All due medications given-tolerated well. Colostomy bag intact. Emile closed drainage with brown fluid output. No output this shift. Patient NPO for procedure that does not have a consent for sign at this time. Dr. Eason to discuss procedure with family and patient before procedure can occur. Safety precautions maintained throughout the shift. Side rails up bilaterally. Call light and most used items within reach. Will endorse to oncoming shift accordingly.
[2018-08-08 07:40] LABS: BASOPHILS % (AUTO) 0.8 % (0.0-2.0); EOSINOPHILS # (AUTO) 0.1 K/uL (0.0-0.7); EOSINOPHILS % (AUTO) 1.9 % (0.0-7.0); HEMATOCRIT 30.7 % (36.7-47.1); HEMOGLOBIN 10.7 g/dL (12.5-16.3); LYMPHOCYTES % (AUTO) 15.6 % (20.5-51.5); MEAN CORPUSCULAR HGB CONC 35 g/dL (32.5-36.3); MEAN CORPUSCULAR VOLUME 91.8 fL (73.0-96.2); MONOCYTES # (AUTO) 0.6 K/uL (2.0-10.0); MONOCYTES % (AUTO) 9.3 % (0.0-11.0); NEUTROPHILS # (AUTO) 4.4 K/uL (1.8-8.9); NEUTROPHILS % (AUTO) 72.4 % (38.5-71.5); PLATELET COUNT (AUTO) 221 K/uL (152-348); RED BLOOD CELL COUNT(AUTO) 3.34 MIL/uL (4.06-5.63); WHITE BLOOD COUNT (AUTO) 6.1 K/uL (3.6-10.2)
[2018-08-08 07:44] LABS: ALANINE AMINOTRANSFERASE 13 U/L (16-63); ALKALINE PHOSPHATASE 89 U/L (50-136); ASPARTATE AMINOTRANSFERASE 18 U/L (15-37); BILIRUBIN,TOTAL 0.5 mg/dL (0.2-1.0); CARBON DIOXIDE 26 mmol/L (21-32); CHLORIDE 107 mmol/L (98-107); CREATININE 1.2 mg/dL (0.6-1.3); GLUCOSE 98 mg/dL (74-106); PHOSPHOROUS 2.8 mg/dL (2.5-4.9); POTASSIUM 3.8 mmol/L (3.5-5.1); TOTAL PROTEIN, SERUM 6.3 g/dL (6.4-8.2); UREA NITROGEN, BLOOD 21 mg/dL (7-18)
[2018-08-08 08:00] VITALS: BP 161/80
[2018-08-08] MEDS: AMIODARONE HCL 200 MG TABLET PO SCH ×2 (09:03→20:00)
[2018-08-08] MEDS: AMLODIPINE 5 MG TABLET PO SCH (09:03)
[2018-08-08] MEDS: CULTURELLE CAPSULE PO SCH ×2 (09:03→20:00)
[2018-08-08] MEDS: CARVEDILOL 3.125 MG TABLET PO SCH ×2 (09:03→17:23)
[2018-08-08] MEDS: HYDROCORTISONE 1% CREAM 30 GM TUBE TP SCH ×3 (09:04→17:24)
--- NOTE | 2018-08-08 09:30 | NUR ---
Received nursing report from shift superintendent caustic cresylate nurse. Pt. in bed comfortable. Pt A/OX4, responds to verbal and tactile stimuli. No SOB or acute distress noted. NPO for preparation of percutaneous abscess drain today. Administered all due medications as ordered and tolerated well. Fall precautions in place. Assisted pt. with morning ADL's. No new skin condition noted. Colostomy bag intact with stool output. Noted with rob-closed drainage system on RLQ with brown/green fluid output. Bed in locked and lowest position with side rails up x2, alarm on. Call light within reach. Will continue to monitor.
--- NOTE | 2018-08-08 10:30 | NUR ---
Approached pt. in a calm manner to obtain consent for up coming procedure (percutaneous abscess drainage and colangiogram). Pt. refused to sign at this time, stated "I will no do any procedure today." Risk and benefits discussed with pt. Placed call with R/P (Pat) and able to touchbase. Per DTR, they want to re-discuss procedure with Dr. Eason. Family informed that Dr. Eason to call. Family thankful for update.
--- NOTE | 2018-08-08 10:45 | NUR ---
1045 Pt. adamant about eating breakfast. Educated pt. about the importance of keeping him on NPO. Pt. non-compliant and called dietary for tray. Placed call to family and agree to serve breakfast. BLANKET FOLDER Daisy aware.
--- NOTE | 2018-08-08 13:00 | NUR ---
Received call from Pat MICHAEL. DTR providing verbal consent for two of the upcoming procedure. Pt. spoke with DTR and agreed to sign consents. Consents signed by pt.
[2018-08-08] MEDS ORDERED: IOHEXOL 300MG/ML 100 ML INFUS..BTL ONE ×2 (13:19→13:20)
--- NOTE | 2018-08-08 13:30 | NUR ---
[facility] staff on-site to tow picker pt. Aware that pt. had breakfast and small sandwich during lunch. No further question from receiving staff. Family at bedside, no new concerns noted.
[2018-08-08] MEDS ORDERED: LIDOCAINE HCL 1% 20 ML VIAL ONE (14:38)
[2018-08-08] MEDS ORDERED: IOPAMIDOL 15 ML VIAL IT ONE (15:20)
--- NOTE | 2018-08-08 18:23 | NUR ---
End of shift: Pt. returned to unit around 1630 in stable condition. All due medications administered as ordered and tolerated well. Encouraged PO fluid intake as tolerated. RFA PIV patent and intact, resumed scheduled IV Abx as ordered. Emile-closed drainage system with 0 output for this shift . Colostomy bag changed today. No new skin condition noted. Skin tear on LFA healing well with dry scabs, dressing removed and kept open to air. 2X upper side rails up as enabler for bed positioning and mobility. Call light and all frequently used items within pt. reach. Will endorse to oncoming shift accordingly.
--- NOTE | 2018-08-08 19:29 | NUR ---
SBAR received from day shift nurse. Pt alert and oriented x 4. No complaint of distress or SOB at this time. Discomfort at procedure site. Pain medication offered, medication offered. Fall precautions in place. Colostomy bag intact with stool output. Emile-closed drainage system on RLQ with brown fluid output. Side rails up bilaterally. Call light and frequently used items within reach. Will continue to monitor.
[2018-08-08] MEDS: DOCUSATE SODIUM 100 MG CAPSULE PO SCH (20:00)
[2018-08-08 20:30] VITALS: BP 98/46
[2018-08-09 04:42] VITALS: BP 136/66
[2018-08-09] MEDS: PIPERACILLIN/TAZOBACTAM/D5W 3.375 G in PREMIXED 1 EACH IV SCH ×3 (06:01→21:02)
[2018-08-09] MEDS: PANTOPRAZOLE SODIUM 40 MG TABLET.DR PO SCH (06:04)
--- NOTE | 2018-08-09 06:57 | NUR ---
No significant changes over night. Slept well throughout the night. No complaint of SOB or pain this morning. IV in place in right forearm. IV infusing 0600 Zosyn at this time. All due medications given-tolerated well. Colostomy bag intact. Emile closed drainage with brown fluid output. No output this shift. Safety precautions maintained throughout the shift. Side rails up bilaterally. Call light and most used items within reach. Will endorse to oncoming shift accordingly.
[2018-08-09 07:19] LABS: BASOPHILS % (AUTO) 0.9 % (0.0-2.0); EOSINOPHILS # (AUTO) 0.1 K/uL (0.0-0.7); EOSINOPHILS % (AUTO) 1.7 % (0.0-7.0); HEMATOCRIT 31.5 % (36.7-47.1); HEMOGLOBIN 10.7 g/dL (12.5-16.3); LYMPHOCYTES # (AUTO) 0.8 K/uL (20.0-40.0); LYMPHOCYTES % (AUTO) 17.2 % (20.5-51.5); MEAN CORPUSCULAR HEMOGLOBIN 31.4 uug (23.8-33.4); MEAN CORPUSCULAR HGB CONC 34 g/dL (32.5-36.3); MEAN CORPUSCULAR VOLUME 92.3 fL (73.0-96.2); MONOCYTES # (AUTO) 0.4 K/uL (2.0-10.0); MONOCYTES % (AUTO) 8.7 % (0.0-11.0); NEUTROPHILS # (AUTO) 3.4 K/uL (1.8-8.9); NEUTROPHILS % (AUTO) 71.5 % (38.5-71.5); PLATELET COUNT (AUTO) 220 K/uL (152-348); RED BLOOD CELL COUNT(AUTO) 3.41 MIL/uL (4.06-5.63); WHITE BLOOD COUNT (AUTO) 4.7 K/uL (3.6-10.2)
[2018-08-09 07:25] VITALS: BP 125/62
[2018-08-09 07:35] LABS: ALANINE AMINOTRANSFERASE 10 U/L (16-63); ALKALINE PHOSPHATASE 88 U/L (50-136); ASPARTATE AMINOTRANSFERASE 20 U/L (15-37); BILIRUBIN,TOTAL 0.6 mg/dL (0.2-1.0); CARBON DIOXIDE 28 mmol/L (21-32); CHLORIDE 107 mmol/L (98-107); CREATININE 1.1 mg/dL (0.6-1.3); GLUCOSE 93 mg/dL (74-106); MAGNESIUM 1.8 mg/dL (1.8-2.4); PHOSPHOROUS 3.2 mg/dL (2.5-4.9); TOTAL PROTEIN, SERUM 6.4 g/dL (6.4-8.2); UREA NITROGEN, BLOOD 18 mg/dL (7-18)
[2018-08-09] MEDS: CARVEDILOL 3.125 MG TABLET PO SCH ×2 (08:00→17:36)
[2018-08-09] MEDS: AMLODIPINE 10 MG TABLET PO SCH (08:21)
[2018-08-09] MEDS: AMIODARONE HCL 200 MG TABLET PO SCH ×2 (08:22→20:43)
[2018-08-09] MEDS: CULTURELLE CAPSULE PO SCH ×2 (08:24→20:48)
[2018-08-09] MEDS: HYDROCORTISONE 1% CREAM 30 GM TUBE TP SCH ×3 (08:25→17:37)
[2018-08-09] MEDS ORDERED: AMLODIPINE 5 MG TABLET PO SCH (09:00)
--- NOTE | 2018-08-09 10:47 | NUR ---
Received nursing report from date night sitter nurse. Pt. in bed comfortable. Pt A/OX4, responds to verbal and tactile stimuli. No SOB or acute distress noted. Administered all due medications as ordered and tolerated well. Fall precautions in place. Assisted pt. with morning ADL's. No new skin condition noted. Colostomy bag intact with stool output. Noted with rob-closed drainage system on RLQ with brown/green fluid output. Pt. stated "I had a really good sleep last night." Bed in locked and lowest position with side rails up x2, alarm on. Call light within reach. Will continue to monitor.
[2018-08-09 16:01] VITALS: BP 104/56
--- NOTE | 2018-08-09 18:28 | NUR ---
End of shift: All due medications administered as ordered and tolerated well. Encouraged PO fluid intake as tolerated. RFA PIV patent and intact. Received IV Abx with no ASE noted. Emile-closed drainage system with 0 output for this shift. Colostomy bag changed today. No new skin condition noted. 2X upper side rails up as enabler for bed positioning and mobility. Call light and all frequently used items within pt. reach. Will endorse to oncoming shift accordingly. Addendum: 08/09/18 at 1856 by JENNYFER GRANT RN Correction of charting: Cholecystostomy tube with 50 CC of fluid output.
[2018-08-09 19:51] VITALS: BP 130/55
[2018-08-09] MEDS: DOCUSATE SODIUM 100 MG CAPSULE PO SCH (20:42)
--- NOTE | 2018-08-09 23:36 | NUR ---
Received pt resting in bed and reading a book. AAO x4. No acute distress noted. No c/o pain or discomfort. All due meds given as ordered. IV Zosyn currently running, tolerating well. Safety measures maintained. Call light and personal belongings within reach. Will continue to monitor.
--- NOTE | 2018-08-09 23:40 | NUR ---
Pt refused Colace. Risks and benefits explained x3. Still refused. Continue to monitor.
[2018-08-10 04:30] VITALS: BP 136/64
[2018-08-10] MEDS: PIPERACILLIN/TAZOBACTAM/D5W 3.375 G in PREMIXED 1 EACH IV SCH ×3 (06:21→21:18)
[2018-08-10] MEDS: PANTOPRAZOLE SODIUM 40 MG TABLET.DR PO SCH (06:21)
--- NOTE | 2018-08-10 07:00 | NUR ---
Pt slept comfortably at night. Pt stated that he slept better compared to other nights. IV Zosyn infusing at this time. All needs attended to promptly. Emile-closed drainage system output is 70cc for this shift with bile colored output. Continue to monitor.
[2018-08-10 07:25] VITALS: BP 144/88
[2018-08-10 07:39] LABS: BASOPHILS # (AUTO) 0.1 K/uL (0.0-8.0); BASOPHILS % (AUTO) 1.3 % (0.0-2.0); EOSINOPHILS # (AUTO) 0.1 K/uL (0.0-0.7); EOSINOPHILS % (AUTO) 1.9 % (0.0-7.0); HEMATOCRIT 31.9 % (36.7-47.1); LYMPHOCYTES % (AUTO) 19.9 % (20.5-51.5); MEAN CORPUSCULAR HEMOGLOBIN 31.4 uug (23.8-33.4); MEAN CORPUSCULAR HGB CONC 35 g/dL (32.5-36.3); MEAN CORPUSCULAR VOLUME 91.2 fL (73.0-96.2); MONOCYTES # (AUTO) 0.4 K/uL (2.0-10.0); MONOCYTES % (AUTO) 7.1 % (0.0-11.0); NEUTROPHILS # (AUTO) 3.4 K/uL (1.8-8.9); NEUTROPHILS % (AUTO) 69.8 % (38.5-71.5); PLATELET COUNT (AUTO) 204 K/uL (152-348); RED BLOOD CELL COUNT(AUTO) 3.49 MIL/uL (4.06-5.63); WHITE BLOOD COUNT (AUTO) 4.9 K/uL (3.6-10.2)
[2018-08-10 07:58] LABS: ALANINE AMINOTRANSFERASE 13 U/L (16-63); ALKALINE PHOSPHATASE 90 U/L (50-136); ASPARTATE AMINOTRANSFERASE 18 U/L (15-37); BILIRUBIN,TOTAL 0.9 mg/dL (0.2-1.0); CARBON DIOXIDE 26 mmol/L (21-32); CHLORIDE 105 mmol/L (98-107); CREATININE 1.2 mg/dL (0.6-1.3); GLUCOSE 92 mg/dL (74-106); MAGNESIUM 1.8 mg/dL (1.8-2.4); PHOSPHOROUS 2.9 mg/dL (2.5-4.9); TOTAL PROTEIN, SERUM 6.6 g/dL (6.4-8.2); UREA NITROGEN, BLOOD 20 mg/dL (7-18)
[2018-08-10] MEDS: AMIODARONE HCL 200 MG TABLET PO SCH ×2 (08:23→21:16)
[2018-08-10] MEDS: AMLODIPINE 10 MG TABLET PO SCH (08:23)
[2018-08-10] MEDS: CARVEDILOL 3.125 MG TABLET PO SCH ×2 (08:23→17:07)
[2018-08-10] MEDS: HYDROCORTISONE 1% CREAM 30 GM TUBE TP SCH ×3 (08:24→16:41)
[2018-08-10] MEDS: CULTURELLE CAPSULE PO SCH ×2 (08:24→21:16)
--- NOTE | 2018-08-10 10:17 | NUR ---
Received nursing report from shift lab technician nurse. Pt. in bed comfortable. Pt A/OX4, responds to verbal and tactile stimuli. No SOB or acute distress noted. Administered all due medications as ordered and tolerated well. Assisted pt. with morning ADL's. Received with IV zosyn infusing for sepsis. No new skin condition noted. Colostomy bag intact. Noted with rob-closed drainage system to be change today. Bed in locked and lowest position with side rails up x2, alarm on. Call light within reach. Will continue to monitor.
--- NOTE | 2018-08-10 15:39 | NUR ---
Received order from ROSHAN Smith to change Emile-closed drainage bag. Orders noted and carried out accordingly. No fluid output from old drainage bag. Pt. tolerated procedure well.
[2018-08-10 16:08] VITALS: BP 107/51
--- NOTE | 2018-08-10 18:11 | NUR ---
End of shift: All due medications administered as ordered and tolerated well. Encouraged PO fluid intake as tolerated. RFA PIV patent and intact. Received IV Abx with no ASE noted. Emile-closed drainage system with 0 output for this shift. Pt. teaching provided on how to change colostomy bag, pt. able to perform colostomy bag changed with no assistance. Pt. seen by Dr. Kauffman (ID). No new skin condition noted. Pt. schedule for discharge on 08/10/18, TMS to be done by Dr. Baker. 2X upper side rails up as enabler for bed positioning and mobility. Call light and all frequently used items within pt. reach. Will endorse to oncoming shift accordingly.
[2018-08-10 20:00] VITALS: BP 119/62
[2018-08-10] MEDS: DOCUSATE SODIUM 100 MG CAPSULE PO SCH (21:00)
--- NOTE | 2018-08-10 22:17 | NUR ---
Received pt resting in bed. AAO x4. No acute distress noted. No c/o pain or discomfort. Pt seen by Samuel STEPHENSON. Emile- closed drainage system intact, no output noted from the beginning of shift. Colostomy bag also intact. IV Zosyn currently infusing at this time. Pt refused Colace, risks and benefits explained, still refused. Safety measures maintained. Call light and personal belongings within reach. Will continue to monitor.
[2018-08-11 04:50] VITALS: BP 130/70
[2018-08-11] MEDS: PANTOPRAZOLE SODIUM 40 MG TABLET.DR PO SCH (06:05)
[2018-08-11] MEDS: PIPERACILLIN/TAZOBACTAM/D5W 3.375 G in PREMIXED 1 EACH IV SCH (06:06)
--- NOTE | 2018-08-11 06:26 | NUR ---
Pt slept intermittently at night. All needs attended to promptly. Emile- closed drainage system output is 0 cc t/o the shift. Continue to monitor.
[2018-08-11 08:00] VITALS: BP 120/63
[2018-08-11] MEDS: AMIODARONE HCL 200 MG TABLET PO SCH (08:48)
[2018-08-11] MEDS: CULTURELLE CAPSULE PO SCH (08:49)
[2018-08-11] MEDS: AMLODIPINE 10 MG TABLET PO SCH (08:49)
[2018-08-11 08:50] VITALS: BP 120/63
[2018-08-11] MEDS: CARVEDILOL 3.125 MG TABLET PO SCH (08:50)
[2018-08-11] MEDS: HYDROCORTISONE 1% CREAM 30 GM TUBE TP SCH (08:57)
--- NOTE | 2018-08-11 16:05 | NUR ---
AND DAUGHTER HERE TO PICK HIM UP TO TAKE HIM HOME. D/C INSTRUCTIONS GIVEN TO DAUGHTER AND VERBALIZE UNDERSTANDING. DC ORDER ON FILE. SKIN PICS TAKEN. WHEELED OUT TO DAUGHTER'S CAR FOR DC HOME. IV D/C INTACT #22G. VSS 128/66-84-18. RA 97%. NO C/O PAIN DISCOMFORT NOTED
[2018-10-01] MEDS ORDERED: LEVO50TA8 PO (10:23)
[2018-10-02] MEDS ORDERED: ASPI81TA31 PO (16:53)
== END 2018-08-11 17:12 | disposition home health service (06) | DRG 871 ==
PROVIDERS: ADMIT Internal Medicine; ATTEND Physical Medicine & Rehabilitation Pain Medicine
PROC: 0F9430Z Drainage of Gallbladder with Drainage Device, Percutaneous Approach (ICD-10-PCS; principal; 2018-08-02)
PROC: 0F923ZZ Drainage of Left Lobe Liver, Percutaneous Approach (ICD-10-PCS; 2018-08-08)
DX: A41.9 Sepsis, unspecified organism (principal); J18.9 Pneumonia, unspecified organism; I21.A1 Myocardial infarction type 2; E43 Unspecified severe protein-calorie malnutrition; K75.0 Abscess of liver; N39.0 Urinary tract infection, site not specified; I13.0 Hypertensive heart and chronic kidney disease with heart failure and stage 1 through stage 4 chronic kidney disease, or unspecified chronic kidney disease; I50.42 Chronic combined systolic (congestive) and diastolic (congestive) heart failure; I48.91 Unspecified atrial fibrillation; I25.5 Ischemic cardiomyopathy; I25.10 Atherosclerotic heart disease of native coronary artery without angina pectoris; K80.20 Calculus of gallbladder without cholecystitis without obstruction; Z93.3 Colostomy status; Z95.5 Presence of coronary angioplasty implant and graft; Z85.048 Personal history of other malignant neoplasm of rectum, rectosigmoid junction, and anus; N18.9 Chronic kidney disease, unspecified; D63.8 Anemia in other chronic diseases classified elsewhere; I25.2 Old myocardial infarction; I70.0 Atherosclerosis of aorta; K43.5 Parastomal hernia without obstruction or gangrene; K82.8 Other specified diseases of gallbladder; R29.6 Repeated falls; Z91.81 History of falling; R32 Unspecified urinary incontinence; Z87.891 Personal history of nicotine dependence; L73.9 Follicular disorder, unspecified; Z92.3 Personal history of irradiation; Z92.21 Personal history of antineoplastic chemotherapy; Z82.49 Family history of ischemic heart disease and other diseases of the circulatory system; Z80.0 Family history of malignant neoplasm of digestive organs
CPT/HCPCS: 36415; 47531; 70030-TC; 74150; 76705; 76942; 83735; 84100; 85025; 85730; 87070; 87205; 92523; 92526; 92610; 97110; 97112; 97116; 97530; 97535; A4663; J2543; J3490; J7050; Q0163; Q9967

== ENCOUNTER 2018-08-22 07:11 | Inpatient (IN) | payer MEDICARE, BC ==
[~2018-08-22] VITALS: Ht 180.3 cm; Wt 69.5 kg
--- NOTE | 2018-08-22 07:24 | NUR ---
PT A/OX4, PRESENTS TO THE ER IN PRIVATE VEHICLE C/O ABD PAIN. PT ESCORTED IN ON ER W/C. PT WAS D/C FROM THIS HOSPITAL 2 DAYS AGO AND HAS BEEN SEEING A HOME HEALTH NURSE TO CARE FOR HIS GALLBLADDER DRAIN. PT STATES THE ABD PAIN WAS TOO SEVERE AND POINTS TO A HERNIAL PROTRUSION ON THE LLQ. VSS. PT DENIES C/P, SOB, N/V/D, DIZZINESS, HEADACHE.
--- NOTE | 2018-08-22 07:25 | NUR ---
PT REPORTS X1 EPISODE OF VOMITING THIS AM.
--- NOTE | 2018-08-22 07:27 | NUR ---
ZENAIDA LUCAS AT BEDSIDE FOR MSE.
--- NOTE | 2018-08-22 07:42 | NUR ---
RECEIVED ORDER FROM ZENAIDA LUCAS TO ACCESS PICC LINE CIARA.
[2018-08-22] MEDS ORDERED: GENTAMICIN SULFATE INJ 80 MG in IV DEXTROSE 5% 100 ML IV ONE (07:45)
[2018-08-22] MEDS ORDERED: PIPERACILLIN SODIUM/TAZOBACTAM 3.375 G in IV DEXTROSE 5% 50 ML IV ONE (07:45)
[2018-08-22] MEDS ORDERED: IV NORMAL SALINE 1000 ML BAG IV ONE (07:45)
[2018-08-22] MEDS ORDERED: VANCOMYCIN IV 1,000 MG in IV DEXTROSE 5% 250 ML IV ONE (07:45)
[2018-08-22] MEDS ORDERED: PIPERACILLIN/TAZOBACTAM/D5W 0 ML IV ONE (07:52)
[2018-08-22] MEDS ORDERED: LEVOFLOXACIN 500 MG/D5W 100ML PIGGYBACK IV ONE (08:00)
--- NOTE | 2018-08-22 08:01 | NUR ---
UPON INSPECTION, PT IS RECEIVING ZOSYN 3.375 G VIA THE EXISTING PICC LINE IN [facility]. RECEIVED ORDER FROM ZENAIDA LUCAS TO CONTINUE ADMINISTERING THE ZOSYN THE PT CAME IN W/.
--- NOTE | 2018-08-22 08:02 | NUR ---
PT TAKEN TO RADIOLOGY FOR CT SCAN.
[2018-08-22 08:12] LABS: LYMPHOCYTES # (AUTO) 0.4 K/uL (20.0-40.0); MEAN CORPUSCULAR VOLUME 92.5 fL (73.0-96.2); MONOCYTES # (AUTO) 0.7 K/uL (2.0-10.0); MONOCYTES % (AUTO) 5.6 % (0.0-11.0); WHITE BLOOD COUNT (AUTO) 12.5 K/uL (3.6-10.2)
[2018-08-22 08:18] LABS: CARBON DIOXIDE 29 mmol/L (21-32); CHLORIDE 104 mmol/L (98-107); CREATININE 1.3 mg/dL (0.6-1.3); GLUCOSE 139 mg/dL (74-106); POTASSIUM 3.6 mmol/L (3.5-5.1); UREA NITROGEN, BLOOD 17 mg/dL (7-18)
--- NOTE | 2018-08-22 08:18 | NUR ---
PT BACK IN ER FROM RADIOLOGY.
[2018-08-22 08:22] LABS: BASOPHILS % (AUTO) 0.2 % (0.0-2.0); EOSINOPHILS % (AUTO) 0.1 % (0.0-7.0); HEMATOCRIT 31.9 % (36.7-47.1); HEMOGLOBIN 10.9 g/dL (12.5-16.3); LYMPHOCYTES % (AUTO) 2.9 % (20.5-51.5); MEAN CORPUSCULAR HEMOGLOBIN 31.6 uug (23.8-33.4); MEAN CORPUSCULAR HGB CONC 34 g/dL (32.5-36.3); NEUTROPHILS # (AUTO) 11.4 K/uL (1.8-8.9); NEUTROPHILS % (AUTO) 91.2 % (38.5-71.5); PLATELET COUNT (AUTO) 158 K/uL (152-348); RED BLOOD CELL COUNT(AUTO) 3.45 MIL/uL (4.06-5.63)
[2018-08-22] MEDS ORDERED: LEVOFLOXACIN 500 MG/D5W 100 ML ONE (08:25)
[2018-08-22 08:30] LABS: ALANINE AMINOTRANSFERASE 16 U/L (16-63); ALKALINE PHOSPHATASE 89 U/L (50-136); ASPARTATE AMINOTRANSFERASE 21 U/L (15-37); BILIRUBIN,DIRECT 0.2 mg/dL (0.0-0.2); TOTAL PROTEIN, SERUM 6.7 g/dL (6.4-8.2)
[2018-08-22 08:40] LABS: BAND % (MANUAL) 3 % (0-10); LYMPHOCYTES % (MANUAL) 2 % (20-40); MONOCYTES % (MANUAL) 2 % (2-10)
[2018-08-22 08:43] LABS: NEUTROPHILS % (MANUAL) 92 % (42-75); REACTIVE LYMPHOCYTES 1 % (0-0)
[2018-08-22] MEDS ORDERED: GENTAMICIN SULFATE 80 MG/2 ML VIAL ONE (08:44)
[2018-08-22] MEDS ORDERED: VANCOMYCIN IV 200 ML ONE (08:44)
--- NOTE | 2018-08-22 08:55 | NUR ---
PAGED EPIC FOR PANEL CALL - AWAITING CALL-BACK. ATTEMPT 1.
--- NOTE | 2018-08-22 09:01 | NUR ---
PAGED DR. XENA BRICEÑO, AWAITING CALLBACK. ATTEMPT 1.
[2018-08-22] MEDS ORDERED: ASPI81TA44 PO (09:02)
[2018-08-22] MEDS ORDERED: LISI2.5T2 PO (09:02)
[2018-08-22] MEDS ORDERED: AMLO10TA7 PO (09:02)
--- NOTE | 2018-08-22 09:03 | NUR ---
ZENAIDA LUCAS SPEAKING W/ DR. SMITH RE PT'S ADMISSION.
--- NOTE | 2018-08-22 09:21 | NUR ---
16F NG TUBE INSERTED IN R NARES 55 CM.
--- NOTE | 2018-08-22 09:29 | NUR ---
ZENAIDA LUCAS AT BEDSIDE FOR PT UPDATE.
--- NOTE | 2018-08-22 09:30 | NUR ---
GAVE ADMITTING REPORT TO NIKOLAI FLEMING.
--- NOTE | 2018-08-22 09:33 | NUR ---
Pt. admitted to TELE 212, under care of Dr. SMITH. Belongs List completed
--- NOTE | 2018-08-22 10:10 | NUR ---
PATIENT ADMITTED TO ROOM 212 ON TELE. ARRIVED TO UNIT VIA GURNEY ACCOMPANIED BY CHRIS MENCHACA. RECEIVED REPORT PRIOR TO PATIENT BEING BROUGHT UP TO UNIT. NGT NOTED ON RIGHT NOSTRIL IN PLACE WILL KEEP IN LIS. CHOLECYSTECTOMY TUBE INTACT W/ SMALL AMOUNT OF BILE COLORED DRAINAGE. PICC LINE ON EUSEBIO SINGLE LUMEN NOTED. W/ COLOSTOMY BAG. ADMISSION ORDERS NOTED AND CARRIED OUT. ASSESSMENTS DONE. WILL CONTINUE TO MONITOR CLOSELY.
[2018-08-22] MEDS ORDERED: MAGNESIUM HYDROXIDE 30 ML LIQUID UDC PO PRN (10:15)
[2018-08-22] MEDS ORDERED: ACETAMINOPHEN 325 MG TABLET PO PRN (10:15)
[2018-08-22] MEDS ORDERED: Z GUARD REMEDY PASTE 57 GM TUBE TOP PRN (10:15)
[2018-08-22] MEDS ORDERED: ONDANSETRON 4 MG/2 ML VIAL IV PRN (10:15)
[2018-08-22] MEDS ORDERED: HYDROCODONE/APAP 5-325MG TABLET PO PRN (10:15)
[2018-08-22 11:00] VITALS: BP 135/55
[2018-08-22] MEDS: IV NS 1000 ML 1,000 ML IV PRN (11:43)
[2018-08-22] MEDS ORDERED: PIPERACILLIN SODIUM/TAZOBACTAM 4.5 G in IV DEXTROSE 5% 50 ML IV SCH (14:00)
[2018-08-22] MEDS: PIPERACILLIN/TAZOBACTAM/D5W 3.375 G in PREMIXED 1 EACH IV SCH ×2 (14:37→21:00)
[2018-08-22 14:45] LABS: *BILIRUBIN,URIN NEGATIVE (NEGATIVE); *BLOOD, URINE NEGATIVE (NEGATIVE); *CLARITY,URINE CLEAR (CLEAR); *COLOR,URINE YELLOW (YELLOW); *KETONES,URINE NEGATIVE (NEGATIVE); *UROBILINOGEN,URINE 0.2 E.U./dl (NORMAL); LEUKOCYTE ESTERASE ,URINE NEGATIVE (NEGATIVE); NITRITE, URINE NEGATIVE (NEGATIVE); PH,URINE 7.5 (5.0-8.0); UGLUCOSE NEGATIVE (NEGATIVE)
[2018-08-22 14:54] LABS: BACTERIA,URINE NONE SEEN /HPF (NONE SEEN); RBC,URINE 0-3 /HPF (0-3); SQUAMOUS EPITHELIAL CELL,UR FEW /HPF (NONE SEEN); WBC,URINE 0-3 /HPF (0-3)
[2018-08-22 15:04] VITALS: BP 131/72
[2018-08-22 15:04] LABS: *CREATININE,URINE 73.9 mg/dL (30-125); *URINE TOTAL PROTEIN RANDOM 29.9 mg/dL (<150/24HR)
--- NOTE | 2018-08-22 19:20 | NUR ---
RECEIVED PATIENT LYING IN BED. AAOX4. IN NO ACUTE DISTRESS. DENIES ANY PAIN OR SOB. NGT IN PLACE ON INTERMITTENT SUCTION. NPO STATUS. IV SITE ON LEFT AC INTACT AND PATENT. IVF INFUSING. PICC LINE ON RIGHT UPPER ARM INTACT. COLOSTOMY IN PLACE WITH MINIMAL STOOL NOTED. CHOLECYSTECTOMY TUBE INTACT WITH MINIMAL GREENISH DRAINAGE. SAFETY MEASURE INITIATED AND CALL LEVINE WITHIN REACH. Addendum: 08/22/18 at 2141 by YOLIE ABRAMS RN NSR ON TELE AT 78/MIN. Addendum: 08/22/18 at 2322 by YOLIE ABRAMS RN CHOLECYSTOSTOMY TUBE INTACT.
[2018-08-22 20:21] VITALS: BP 137/64
[2018-08-23 00:07] VITALS: BP 121/69
[2018-08-23 04:00] VITALS: BP 117/75
[2018-08-23] MEDS: PIPERACILLIN/TAZOBACTAM/D5W 3.375 G in PREMIXED 1 EACH IV SCH ×3 (05:22→21:03)
--- NOTE | 2018-08-23 06:15 | NUR ---
AAOX4. DENIES ANY PAIN OR SOB. NGT IN PLACE ON INTERMITTENT SUCTION. NPO STATUS. IV SITE ON LEFT AC INTACT AND PATENT. IVF INFUSING. NO ADVERSE REACTION NOTED FROM IV ABX. PICC LINE ON RIGHT UPPER ARM INTACT. COLOSTOMY IN PLACE. CHOLECYSTOSTOMY TUBE INTACT. NSR ON TELE AT 61/MIN. SAFETY MEASURE MAINTAINED AND CALL LEVINE WITHIN REACH.
[2018-08-23 07:52] LABS: BASOPHILS % (AUTO) 0.3 % (0.0-2.0); EOSINOPHILS # (AUTO) 0.2 K/uL (0.0-0.7); EOSINOPHILS % (AUTO) 1.2 % (0.0-7.0); HEMATOCRIT 30.2 % (36.7-47.1); HEMOGLOBIN 10.3 g/dL (12.5-16.3); LYMPHOCYTES # (AUTO) 0.6 K/uL (20.0-40.0); LYMPHOCYTES % (AUTO) 4.9 % (20.5-51.5); MEAN CORPUSCULAR HEMOGLOBIN 31.6 uug (23.8-33.4); MEAN CORPUSCULAR HGB CONC 34 g/dL (32.5-36.3); MEAN CORPUSCULAR VOLUME 93.1 fL (73.0-96.2); MONOCYTES # (AUTO) 0.6 K/uL (2.0-10.0); MONOCYTES % (AUTO) 4.7 % (0.0-11.0); NEUTROPHILS # (AUTO) 11.7 K/uL (1.8-8.9); NEUTROPHILS % (AUTO) 88.9 % (38.5-71.5); PLATELET COUNT (AUTO) 145 K/uL (152-348); RED BLOOD CELL COUNT(AUTO) 3.25 MIL/uL (4.06-5.63); WHITE BLOOD COUNT (AUTO) 13.2 K/uL (3.6-10.2)
[2018-08-23 08:21] LABS: ALANINE AMINOTRANSFERASE 12 U/L (16-63); ALKALINE PHOSPHATASE 82 U/L (50-136); ASPARTATE AMINOTRANSFERASE 19 U/L (15-37); BILIRUBIN,TOTAL 0.9 mg/dL (0.2-1.0); CARBON DIOXIDE 27 mmol/L (21-32); CHLORIDE 103 mmol/L (98-107); CHOLESTEROL 197 mg/dL (<200); GLUCOSE 89 mg/dL (74-106); HDL CHOLESTEROL 46 mg/dL (40-60); MAGNESIUM 1.8 mg/dL (1.8-2.4); POTASSIUM 3.6 mmol/L (3.5-5.1); TOTAL PROTEIN, SERUM 6.5 g/dL (6.4-8.2); TRIGLYCERIDES 86 MG/DL (30-150); UREA NITROGEN, BLOOD 12 mg/dL (7-18)
[2018-08-23] MEDS ORDERED: DIATR MEGLU/DIATRIZOATE SODIUM 30 ML SOLUTION ONE (08:44)
[2018-08-23 08:55] LABS: CREATINE KINASE, TOTAL 35 U/L (39-308)
--- NOTE | 2018-08-23 10:57 | NUR ---
SBS COMPLETED AT [address] VELAZQUEZ
[2018-08-23 11:19] VITALS: BP 131/65
[2018-08-23] MEDS: IV NS 1000 ML 1,000 ML IV PRN (12:36)
[2018-08-23] MEDS ORDERED: IV NS 1000 ML 1,000 ML IV PRN (14:21)
[2018-08-23] MEDS ORDERED: IPRATROPIUM BROMIDE 0.5 MG/2.5 ML NEBU NEB PRN (14:30)
[2018-08-23] MEDS ORDERED: ALBUTEROL SULFATE 2.5 MG/ 0.5 ML NEBU NEB PRN (14:30)
[2018-08-23 15:10] VITALS: BP 131/65
[2018-08-23] MEDS: CARVEDILOL 3.125 MG TABLET PO SCH (17:00)
--- NOTE | 2018-08-23 19:20 | NUR ---
RECEIVED PATIENT LYING IN BED. AAOX4. IN NO ACUTE DISTRESS. DENIES ANY PAIN OR SOB. IV SITE ON LEFT AC INTACT AND PATENT. IVF INFUSING. PICC LINE ON RIGHT UPPER ARM INTACT. NSR ON TELE AT 94/MIN. COLOSTOMY IN PLACE. CHOLECYSTOSTOMY TUBE INTACT. SAFETY MEASURE INITIATED AND CALL LEVINE WITHIN REACH.
[2018-08-23 20:00] VITALS: BP 109/58
[2018-08-24 00:17] VITALS: BP 120/52
[2018-08-24 04:00] VITALS: BP 139/75
[2018-08-24] MEDS: PIPERACILLIN/TAZOBACTAM/D5W 3.375 G in PREMIXED 1 EACH IV SCH ×3 (05:04→21:04)
--- NOTE | 2018-08-24 06:04 | NUR ---
AAOX4. NO COMPLAIN PAIN OR SOB. IV SITE ON LEFT AC INTACT AND PATENT. IVF INFUSING. NO ADVERSE REACTION NOTED FROM IV ABX. PICC LINE ON RIGHT UPPER ARM INTACT. COLOSTOMY INTACT. CHOLECYSTOSTOMY TUBE INTACT. NSR ON TELE AT 60/MIN. SAFETY MEASURE MAINTAINED AND CALL LEVINE WITHIN REACH.
[2018-08-24 06:20] LABS: BASOPHILS % (AUTO) 0.3 % (0.0-2.0); EOSINOPHILS # (AUTO) 0.4 K/uL (0.0-0.7); EOSINOPHILS % (AUTO) 3.8 % (0.0-7.0); HEMATOCRIT 29.9 % (36.7-47.1); HEMOGLOBIN 10.2 g/dL (12.5-16.3); LYMPHOCYTES # (AUTO) 0.6 K/uL (20.0-40.0); LYMPHOCYTES % (AUTO) 5.6 % (20.5-51.5); MEAN CORPUSCULAR HEMOGLOBIN 32.1 uug (23.8-33.4); MEAN CORPUSCULAR HGB CONC 34 g/dL (32.5-36.3); MEAN CORPUSCULAR VOLUME 93.6 fL (73.0-96.2); MONOCYTES # (AUTO) 0.7 K/uL (2.0-10.0); MONOCYTES % (AUTO) 6.8 % (0.0-11.0); NEUTROPHILS # (AUTO) 8.4 K/uL (1.8-8.9); NEUTROPHILS % (AUTO) 83.5 % (38.5-71.5); PLATELET COUNT (AUTO) 141 K/uL (152-348); WHITE BLOOD COUNT (AUTO) 10.1 K/uL (3.6-10.2)
[2018-08-24 06:52] LABS: ALANINE AMINOTRANSFERASE 13 U/L (16-63); ALKALINE PHOSPHATASE 85 U/L (50-136); ASPARTATE AMINOTRANSFERASE 20 U/L (15-37); BILIRUBIN,TOTAL 0.7 mg/dL (0.2-1.0); CARBON DIOXIDE 27 mmol/L (21-32); CHLORIDE 105 mmol/L (98-107); GLUCOSE 90 mg/dL (74-106); MAGNESIUM 1.7 mg/dL (1.8-2.4); PHOSPHOROUS 2.8 mg/dL (2.5-4.9); POTASSIUM 3.5 mmol/L (3.5-5.1); TOTAL PROTEIN, SERUM 6.5 g/dL (6.4-8.2); UREA NITROGEN, BLOOD 15 mg/dL (7-18)
[2018-08-24] MEDS: PANTOPRAZOLE SODIUM 40 MG TABLET.DR PO SCH (08:25)
[2018-08-24] MEDS: AMLODIPINE 10 MG TABLET PO SCH (08:26)
[2018-08-24] MEDS: LISINOPRIL 5 MG TABLET PO SCH (08:26)
[2018-08-24] MEDS: ASPIRIN EC 81 MG TABLET.DR PO SCH (08:26)
[2018-08-24] MEDS: CARVEDILOL 3.125 MG TABLET PO SCH ×2 (08:27→18:00)
[2018-08-24 11:11] VITALS: BP 93/50
[2018-08-24] MEDS: MAGNESIUM SULFATE/D5W 100 ML IV SCH ×2 (12:43→13:59)
[2018-08-24 15:34] VITALS: BP 104/50
--- NOTE | 2018-08-24 18:50 | NUR ---
PT IS AOX4, CALM, RESTING IN BED, NO SIGNS OF RESPIRATORY DISTRESS, DENIES PAIN, IS AMBUALTORY, STEADY GAIT. CONTINUE TO MONITOR PT.
[2018-08-24 19:20] VITALS: BP 112/57
--- NOTE | 2018-08-24 19:20 | NUR ---
RECEIVED PATIENT LYING IN BED. AAOX4. IN NO ACUTE DISTRESS. DENIES ANY PAIN OR SOB. IV SITE ON LEFT AC INTACT AND PATENT. IVF INFUSING. PICC LINE ON RIGHT UPPER ARM INTACT. NSR ON TELE AT 61/MIN. COLOSTOMY IN PLACE. CHOLECYSTOSTOMY TUBE INTACT. NEEDS ASSESSED AND ATTENDED TO. SAFETY MEASURE INITIATED AND CALL LEVINE WITHIN REACH.
[2018-08-24 23:24] VITALS: BP 118/62
[2018-08-25 03:41] VITALS: BP 121/65
[2018-08-25] MEDS: PIPERACILLIN/TAZOBACTAM/D5W 3.375 G in PREMIXED 1 EACH IV SCH (05:46)
[2018-08-25] MEDS: PANTOPRAZOLE SODIUM 40 MG TABLET.DR PO SCH (06:08)
--- NOTE | 2018-08-25 06:12 | NUR ---
AAOX4. DENIES ANY PAIN OR SOB. IV SITE ON LEFT AC INTACT AND PATENT. NO ADVERSE REACTION NOTED FROM IV ABX. PICC LINE ON RIGHT UPPER ARM INTACT. COLOSTOMY INTACT. CHOLECYSTOSTOMY TUBE INTACT. NSR ON TELE AT 63/MIN. NPO STATUS. SAFETY MEASURE MAINTAINED AND CALL LEVINE WITHIN REACH.
[2018-08-25 07:24] LABS: BASOPHILS % (AUTO) 0.3 % (0.0-2.0); EOSINOPHILS # (AUTO) 0.4 K/uL (0.0-0.7); EOSINOPHILS % (AUTO) 5.1 % (0.0-7.0); HEMOGLOBIN 9.7 g/dL (12.5-16.3); LYMPHOCYTES # (AUTO) 0.5 K/uL (20.0-40.0); LYMPHOCYTES % (AUTO) 7.1 % (20.5-51.5); MEAN CORPUSCULAR HEMOGLOBIN 32.2 uug (23.8-33.4); MEAN CORPUSCULAR HGB CONC 35 g/dL (32.5-36.3); MEAN CORPUSCULAR VOLUME 93.3 fL (73.0-96.2); MONOCYTES # (AUTO) 0.5 K/uL (2.0-10.0); MONOCYTES % (AUTO) 6.8 % (0.0-11.0); NEUTROPHILS # (AUTO) 6.1 K/uL (1.8-8.9); NEUTROPHILS % (AUTO) 80.7 % (38.5-71.5); PLATELET COUNT (AUTO) 147 K/uL (152-348); WHITE BLOOD COUNT (AUTO) 7.6 K/uL (3.6-10.2)
[2018-08-25] MEDS: CARVEDILOL 3.125 MG TABLET PO SCH (07:46)
[2018-08-25 07:49] LABS: ALANINE AMINOTRANSFERASE 12 U/L (16-63); ALKALINE PHOSPHATASE 84 U/L (50-136); ASPARTATE AMINOTRANSFERASE 17 U/L (15-37); BILIRUBIN,TOTAL 0.5 mg/dL (0.2-1.0); CARBON DIOXIDE 26 mmol/L (21-32); CHLORIDE 105 mmol/L (98-107); GLUCOSE 91 mg/dL (74-106); MAGNESIUM 1.7 mg/dL (1.8-2.4); PHOSPHOROUS 2.8 mg/dL (2.5-4.9); POTASSIUM 3.1 mmol/L (3.5-5.1); TOTAL PROTEIN, SERUM 6.2 g/dL (6.4-8.2); UREA NITROGEN, BLOOD 20 mg/dL (7-18)
[2018-08-25] MEDS: LISINOPRIL 5 MG TABLET PO SCH (10:01)
[2018-08-25] MEDS: ASPIRIN EC 81 MG TABLET.DR PO SCH (10:01)
[2018-08-25] MEDS: AMLODIPINE 10 MG TABLET PO SCH (10:02)
[2018-08-25] MEDS ORDERED: POTASSIUM CHLORIDE 20 MEQ TAB.PRT.SR PO ONE (10:45)
[2018-08-25 11:50] VITALS: BP 101/49
[2018-08-25] MEDS: MAGNESIUM SULFATE/D5W 100 ML IV SCH ×2 (12:28→14:39)
[2018-08-25] MEDS ORDERED: AMOX-430 PO (12:58)
--- NOTE | 2018-08-25 15:19 | NUR ---
DISCHARGE ORDER NOTED. DISCHARGE PROTOCOL FOLLOWED. PICC LINE REMOVED PER ORDERS, IV REMOVED WELL, BOTH WITH NO REDNESS OR IRRITATION NOTED. DISCHARGE INSTRUCTIONS PROVIDED TO PATIENT WITH OPPORTUNITY TO ASK QUESTIONS. PRESCRIPTION PROVIDED TO PATIENT. PATIENT VERBALIZED UNDERSTANDING. ALL BELONGINGS ACCOUNTED FOR AND SENT WITH PATIENT. PATIENT LEFT VIA PRIVATE CAR WITH SON IN [place].
[2018-10-01] MEDS ORDERED: LEVO50TA8 PO (10:23)
[2018-10-02] MEDS ORDERED: ASPI81TA31 PO (16:53)
== END 2018-08-25 15:32 | disposition home health service (06) | DRG 393 ==
LOC: ER 07:11 → TELE 09:33 → MED 08-25 10:49
PROVIDERS: ADMIT Internal Medicine; ATTEND Internal Medicine
DX: K43.3 Parastomal hernia with obstruction, without gangrene (principal); A41.51 Sepsis due to Escherichia coli [E. coli]; K80.00 Calculus of gallbladder with acute cholecystitis without obstruction; I13.0 Hypertensive heart and chronic kidney disease with heart failure and stage 1 through stage 4 chronic kidney disease, or unspecified chronic kidney disease; I50.32 Chronic diastolic (congestive) heart failure; Z68.1 Body mass index [BMI] 19.9 or less, adult; E44.0 Moderate protein-calorie malnutrition; Z93.3 Colostomy status; I25.5 Ischemic cardiomyopathy; I25.2 Old myocardial infarction; I25.10 Atherosclerotic heart disease of native coronary artery without angina pectoris; N20.0 Calculus of kidney; I48.91 Unspecified atrial fibrillation; D63.8 Anemia in other chronic diseases classified elsewhere; Z68.24 Body mass index [BMI] 24.0-24.9, adult; N18.9 Chronic kidney disease, unspecified; K75.9 Inflammatory liver disease, unspecified; Z79.82 Long term (current) use of aspirin; Z87.891 Personal history of nicotine dependence; Z95.5 Presence of coronary angioplasty implant and graft; Z68.21 Body mass index [BMI] 21.0-21.9, adult; Z92.21 Personal history of antineoplastic chemotherapy; Z92.3 Personal history of irradiation; Z85.048 Personal history of other malignant neoplasm of rectum, rectosigmoid junction, and anus; Z87.01 Personal history of pneumonia (recurrent); Z85.038 Personal history of other malignant neoplasm of large intestine; Z87.440 Personal history of urinary (tract) infections
CPT/HCPCS: 36415; 70030-TC; 71045; 74250; 76705; 83605; 83735; 83970; 84100; 84156; 84300; 85025; 85730; 87040; 87086; 87400; 93005; 97116; 97530; A4663; G0378; J1580; J1956; J2543; J3370; J3475; J7030; J7060; Q9963